=== PATIENT | male | born 1965 | race Caucasian/White ===

== ENCOUNTER 2016-05-14 14:06 | Inpatient (IN) | payer OTHER ==
[2016-05-14] VITALS (10 sets, daily range): BP systolic 63–122; BP diastolic 41–85; PULSE 67–79; RESP 16–24; TEMP 92.9–97.8; O2SAT 95–100
[2016-05-14] MEDS ORDERED: SODIUM CHLOR 0.9% 1000 ML INJ 1,000 ML IV ONE ×3 (14:24→15:45)
[2016-05-14] MEDS ORDERED: SODIUM CHLORIDE 0.9% FLUSH 5 ML FLUSH IVF PRN (14:30)
[2016-05-14] MEDS ORDERED: POTASSIUM CHLOR 20 MEQ PREMIX 100 ML IV PRN ×10 (14:30→18:45)
[2016-05-14] MEDS ORDERED: INSULIN REGULAR (IV INFUSION) 100 UNITS in SODIUM CHLORIDE 0.9% INJ 99 ML IV SCH ×2 (14:30→18:45)
[2016-05-14 14:43] LABS: AUTOMATED NEUTROPHIL # 2.7 TH/MM3 (1.8-7.7); BASOPHIL % 0.7 % (0.0-2.0); EOSINOPHIL % 0.1 % (0.0-4.0); HEMATOCRIT 41.3 % (39.0-51.0); LYMPH % 22.5 % (9.0-44.0); LYMPHOCYTE # 0.9 TH/MM3 (1.0-4.8); MEAN CELL VOLUME 98.7 FL (80.0-100.0); MEAN CORPUSCULAR HEMOGLOBIN 30.7 PG (27.0-34.0); MONO % 4.2 % (0.0-8.0); NEUT % 72.5 % (16.0-70.0); PLATELET COUNT 200 TH/MM3 (150-450); RED BLOOD COUNT 4.18 MIL/MM3 (4.50-5.90); RED CELL DISTRIBUTION WIDTH 12.7 % (11.6-17.2); WHITE BLOOD COUNT 3.8 TH/MM3 (4.0-11.0)
[2016-05-14 14:48] LABS: HEMO FLAGS AUTO DIFF
--- NOTE | 2016-05-14 14:50 | PD ---
HPI . Unresponsive Chief Complaint: Altered Mental Status Time Seen by Provider: 14:13 Travel History International Travel<30 days: No Contact w/Intl Traveler<30days: No Traveled to known affect area: No History of Present Illness HPI Patient is brought in via [facility] because he is unresponsive. History is obtained from his . She states that he's been ill for about 4 or 5 days. He was seen in a clinic and diagnosed with an upper respiratory infection 2 days ago. He was placed on antibiotics, steroids and cough syrup. He has been getting worse rather than better since that treatment was started. He has started vomiting. The reports to numerous to count episodes of emesis. Mother and no diarrhea. She states that they have been trying to force fluids and then he vomits the fluid shortly after he drinks them. She states that he's been so weak that he has fallen. He refused to come to the hospital until today. He has no known history of diabetes. EMS found his sugar to be too high to read. He was hypotensive with a systolic pressure of 70 initially. He was treated en route with IV fluids. Blood pressure on arrival was about 110 systolic. [facility] Past Medical History High Cholesterol: Yes Diminished Hearing: No Hypertension: Yes Social History Alcohol Use: No Tobacco Use: No Substance Use: No Allergies-Medications (Allergen,Severity, Reaction): Coded Allergies: No Known Allergies (Unverified , 05/14/16) Reported Meds & Prescriptions Reported Meds & Active Scripts Active Reported Prednisone 20 Mg Tab 20 Mg PO BID Amoxicillin 875 Mg Tab 875 Mg PO BID Lisinopril 40 Mg Tab 40 Mg PO DAILY Amlodipine (Amlodipine Besylate) 5 Mg Tab 5 Mg PO DAILY Review of Systems General / Constitutional: Positive: Weight Loss, Other ( reports that he's been cool to the touch.) Cardiovascular: No: Chest Pain or Discomfort Respiratory: Positive: Cough Gastrointestinal: Positive: Nausea, Vomiting, No: Diarrhea Neurologic: Positive: Weakness, Dizziness, Syncope, Change in Mentation Physical Exam Narrative GENERAL: Patient is obviously very ill. He appears to pass out. His H&P. SKIN: Pale and dry and cool to the touch HEAD: Atraumatic. Normocephalic. EYES: Pupils equal and round. ENT: No nasal bleeding or discharge. Mucous membranes dry. Strong smell of ketones. NECK: Trachea midline. CARDIOVASCULAR: Regular rate and rhythm. RESPIRATORY: No accessory muscle use. GASTROINTESTINAL: Abdomen soft, non-tender, nondistended. MUSCULOSKELETAL: No obvious deformities. No edema. NEUROLOGICAL: Patient responds to verbal stimuli. I did not hear him speak. PSYCHIATRIC: Unable to assess. Data Data Last Documented VS Vital Signs Date Time Temp Pulse Resp B/P Pulse Ox O2 Delivery O2 Flow Rate FiO2 05/14/16 17:47 75 16 96/57 98 Room Air 05/14/16 17:05 94.2 Orders Electrocardiogram (05/14/16 14:24) Complete Blood Count With Diff (05/14/16 14:24) Comprehensive Metabolic Panel (05/14/16 14:24) Magnesium (Mg) (05/14/16 14:24) Phosphorus (Po4) (05/14/16 14:24) Beta Hydroxybutyrate (Acetone) (05/14/16 14:24) Lactic Acid (05/14/16 14:24) Urinalysis - C+S If Indicated (05/14/16 14:24) Chest, Single Ap (05/14/16 14:24) Blood Glucose (05/14/16 14:24) Blood Glucose (05/14/16 14:54) Ecg Monitoring (05/14/16 14:24) Iv Access Insert/Monitor (05/14/16 14:24) Oximetry (05/14/16 14:24) NPO (05/14/16 14:24) Sodium Chlor 0.9% 1000 Ml Inj (Ns 1000 M (05/14/16 14:24) Sodium Chlor 0.9% 1000 Ml Inj (Ns 1000 M (05/14/16 14:54) Sodium Chloride 0.9% Flush (Ns Flush) (05/14/16 14:30) Troponin I (05/14/16 14:24) Lipase (05/14/16 14:24) Insulin Regular (Iv Infusion) (Novolin R (05/14/16 14:30) Potassium Chlor 20 Meq Premix (Kcl 20 Me (05/14/16 14:30) Potassium Chlor 20 Meq Premix (Kcl 20 Me (05/14/16 14:30) Potassium Chlor 20 Meq Premix (Kcl 20 Me (05/14/16 14:30) Potassium Chlor 20 Meq Premix (Kcl 20 Me (05/14/16 14:30) Sodium Chlor 0.9% 1000 Ml Inj (Ns 1000 M (05/14/16 15:45) Ct Abd/Pel W/O Iv Contrast (05/14/16 16:55) Labs Laboratory Tests Test 05/14/16 05/14/16 05/14/16 14:30 15:15 15:40 White Blood Count 3.8 TH/MM3 Red Blood Count 4.18 MIL/MM3 Hemoglobin 12.8 GM/DL Hematocrit 41.3 % Mean Corpuscular Volume 98.7 FL Mean Corpuscular Hemoglobin 30.7 PG Mean Corpuscular Hemoglobin 31.0 % Concent Red Cell Distribution Width 12.7 % Platelet Count 200 TH/MM3 Mean Platelet Volume 9.5 FL Neutrophils (%) (Auto) 72.5 % Lymphocytes (%) (Auto) 22.5 % Monocytes (%) (Auto) 4.2 % Eosinophils (%) (Auto) 0.1 % Basophils (%) (Auto) 0.7 % Neutrophils # (Auto) 2.7 TH/MM3 Lymphocytes # (Auto) 0.9 TH/MM3 Monocytes # (Auto) 0.2 TH/MM3 Eosinophils # (Auto) 0.0 TH/MM3 Basophils # (Auto) 0.0 TH/MM3 CBC Comment AUTO DIFF Differential Total Cells 100 Counted Neutrophils % (Manual) 61 % Band Neutrophils % 27 % Lymphocytes % 7 % Monocytes % 3 % Neutrophils # (Manual) 3.4 TH/MM3 Metamyelocytes 2 % Differential Comment FINAL DIFF MANUAL Platelet Estimate NORMAL Platelet Morphology Comment NORMAL Red Cell Morphology Comment NORMAL Lactic Acid Level 0.4 mmol/L Urine Color LIGHT-YELLOW Urine Turbidity CLEAR Urine pH 5.0 Urine Specific [place] 1.018 Urine Protein 30 mg/dL Urine Glucose (UA) 1000 mg/dL Urine Ketones 40 mg/dL Urine Occult Blood LARGE Urine Nitrite NEG Urine Bilirubin NEG Urine Urobilinogen LESS THAN 2.0 MG/DL Urine Leukocyte Esterase NEG Urine RBC 1 /hpf Urine WBC 5 /hpf Urine Squamous Epithelial <1 /hpf Cells Urine Bacteria RARE /hpf Urine Mucus FEW /lpf Microscopic Urinalysis Comment CULT NOT INDICATED Sodium Level 112 MEQ/L Potassium Level 6.0 MEQ/L Chloride Level 74 MEQ/L Carbon Dioxide Level 5.5 MEQ/L Anion Gap 33 MEQ/L Blood Urea Nitrogen 85 MG/DL Creatinine 3.44 MG/DL Estimat Glomerular Filtration 19 ML/MIN Rate Random Glucose 1208 MG/DL Calcium Level 7.7 MG/DL Phosphorus Level 7.8 MG/DL Magnesium Level 2.6 MG/DL Total Bilirubin 0.5 MG/DL Aspartate Amino Transf 189 U/L (AST/SGOT) Alanine Aminotransferase 63 U/L (ALT/SGPT) Alkaline Phosphatase 86 U/L Troponin I 0.11 NG/ML Total Protein 5.4 GM/DL Albumin 2.8 GM/DL Lipase GREATER THAN 12024 U/L B-Hydroxybutyrate 12.23 MMOL/L MDM Medical Decision Making Medical Screen Exam Complete: Yes Emergency Medical Condition: Yes Interpretation(s) EKG shows a sinus rhythm. Poor R-wave progression. No old EKGs for comparison. Differential Diagnosis Differential diagnosis of hyperglycemia includes but is not limited to dietary indiscretion, medication noncompliance, infection, IL, DKA. Narrative Course Patient is brought in by [facility] with hyperglycemia and hypotension. We will continue fluid resuscitation. We will start an insulin drip. 3:30 PM Chest x-ray is negative for acute finding. Chest x-ray was independently viewed by me. CBC has an H&H of 12.8 and 41.3. White count is 3.8. All of his chemistries are pending. 5 PM This patient's care has been delayed because we have not yet received lab reports from his chemistries. We have been told verbally that his glucoses about 1200 and his lipase is 30,000. Potassium is 6. Therefore, we can go ahead and start an insulin drip. I have ordered a CT of his abdomen for further evaluation of the elevated lipase. 5:09 PM Sodium is 112, potassium is 6.0, chloride 74, bicarbonate 5.5, BUN 85, creatinine 3.44, glucose 1200. Lipase is greater than 30,000. 6:[address] Koroma will admit the patient to the ICU. Critical Care Narrative Aggregate critical care time was 60 minutes. Time to perform other separately billable procedures was not included in the critical care time. My time did not include minutes spent treating any other patients simultaneously or on activities that did not directly contribute to the patient's treatment. The services I provided to this patient were to treat and/or prevent clinically significant deterioration that could result in: or permanent disability I provided critical care services requiring my management, as noted below: Chart data review, documentation time, medication orders and management, vital sign assessments/reviewing monitor data, ordering and reviewing lab tests, ordering and interpreting/reviewing x-rays and diagnostic studies, care of the patient and discussion of the patient with the admitting physicians. Physician Communication Physician Communication Sole Molder paged at 1800. Dr. Koroma will admit the patient. Diagnosis Primary Impression: DKA (diabetic ketoacidoses) Qualified Code: E13.11 - Diabetic ketoacidosis with coma associated with other specified diabetes mellitus Additional Impressions: Pancreatitis Qualified Code: K85.90 - Acute pancreatitis, unspecified complication status, unspecified pancreatitis type ARF (acute renal failure) Qualified Code: N17.9 - Acute renal failure, unspecified acute renal failure type Admitting Information Admitting Physician Requests: Admit Condition: Serious Aliyah Jacobs MD May 14, 2016 14:50
--- NOTE | 2016-05-14 15:06 | RADRPT ---
EXAM DATE/TIME: 05/14/2016 14:33 [facility] COMPARISON: No previous studies available for comparison. INDICATIONS : Shortness of breath MEDICAL HISTORY : None. SURGICAL HISTORY : None. ENCOUNTER: Initial ACUITY: 1 day PAIN SCORE: Non-responsive. LOCATION: Bilateral chest FINDINGS: A single view of the chest demonstrates the lungs to be symmetrically aerated without evidence of mas s, infiltrate or effusion. The cardiomediastinal contours are unremarkable. Osseous structures are intact. CONCLUSION: No evidence of acute cardiopulmonary disease. Maxwell Patiño MD on May 14, 2016 at 15:04 Board Certified Radiologist. This report was verified electronically.
[2016-05-14 16:12] LABS: BANDS 27 % (0-6); METAMYELOCYTES 2 % (0-1); NEUTROPHIL # MANUAL DIFF 3.4 TH/MM3 (1.8-7.7); PLATELET ESTIMATE SMEAR NORMAL (NORMAL); PLATELET MORPHOLOGY NORMAL (NORMAL); POLYS (SEG NEUTROPHILS) 61 % (16-70); SCAN/DIFF FINAL DIFF MANUAL; WBC DIFF SAMPLE 100
[2016-05-14 16:13] LABS: BACTERIA, URINE RARE /hpf; BLOOD, URINE LARGE (NEG); COMMENT (UR) CULT NOT INDICATED; CULTURE IF INDICATED CULT NOT INDICATED; GLUCOSE,URINE 1000 mg/dL (NEG); KETONE, URINE 40 mg/dL (NEG); MUCUS URINE FEW /lpf (OCC); NITRITE,URINE NEG (NEG); SQUAMOUS EPITHELIAL CELL URINE <1 /hpf (0-5); URINE COLOR LIGHT-YELLOW (YELLW/STRAW)
[2016-05-14] MEDS ORDERED: LISI40TA PO (16:41)
[2016-05-14] MEDS ORDERED: AMOX875T PO (16:41)
[2016-05-14] MEDS ORDERED: PRED20 PO (16:41)
[2016-05-14] MEDS ORDERED: AMLO5TAB2 PO (16:41)
[2016-05-14 16:59] LABS: ALT (GPT) 63 U/L (12-78); ANION GAP 33 MEQ/L (5-15); AST (GOT) 189 U/L (15-37); BICARBONATE 5.5 MEQ/L (21.0-32.0); BLOOD UREA NITROGEN 85 MG/DL (7-18); CHLORIDE 74 MEQ/L (98-107); GLOMERULAR FILTRATION RATE 19 ML/MIN (>89); MAGNESIUM 2.6 MG/DL (1.5-2.5); TOTAL BILIRUBIN ADULT 0.5 MG/DL (0.2-1.0)
[2016-05-14 17:01] LABS: SODIUM (NA) 112 MEQ/L (136-145)
[2016-05-14 17:04] LABS: ALKALINE PHOSPHATASE 86 U/L (45-117); BETA-HYDROXYBUTYRATE 12.23 MMOL/L (0.00-0.39)
--- NOTE | 2016-05-14 17:50 | RADRPT ---
EXAM DATE/TIME: 05/14/2016 17:31 [facility] COMPARISON: No previous studies available for comparison. INDICATIONS : Abdomen pain; vomiting for three days. ORAL CONTRAST: No oral contrast ingested. RADIATION DOSE: 5.88 CTDIvol (mGy) MEDICAL HISTORY : Hypertension. SURGICAL HISTORY : None. ENCOUNTER: Initial ACUITY: 1 day PAIN SCALE: 5/10 LOCATION: Bilateral abdomen. TECHNIQUE: Volumetric scanning of the abdomen and pelvis was performed. Using automated exposure control and ad justment of the mA and/or kV according to patient size, radiation dose was kept as low as reasonably achievable to obtain optimal diagnostic quality images. FINDINGS: LOWER LUNGS: Linear bibasilar atelectasis is mild. LIVER: Homogeneous density without lesion. There is no dilation of the biliary tree. No calcified gallston es. SPLEEN: Normal size without lesion. PANCREAS: The pancreas is edematous and there is stranding of the adjacent fat. No pseudocyst or hemorrhage obs erved. No pancreatic ductal dilatation. KIDNEYS: Normal in size and shape. There is no mass, stone, or hydronephrosis. ADRENAL GLANDS: Within normal limits. VASCULAR: There is no aortic aneurysm. BOWEL/MESENTERY: Circumferential wall thickening involving the duodenum without obstruction or free air. The stomach a nd colon demonstrate no acute abnormality. There is no free intraperitoneal air. Small volume of asc itic fluid mostly within the pelvis. ABDOMINAL WALL: Within normal limits. RETROPERITONEUM: There is no lymphadenopathy. BLADDER: No wall thickening or mass. REPRODUCTIVE: Within normal limits. INGUINAL: There is no lymphadenopathy or hernia. MUSCULOSKELETAL: Within normal limits for patient age. CONCLUSION: 1. Acute pancreatitis without hemorrhage or pseudocyst formation. No calcified stone or ductal dilata tion observed. 2. Small volume ascites. 3. Mild wall thickening involving the duodenum secondary to the adjacent pancreatitis. Aniceto Coulter Jr., MD on May 14, 2016 at 17:41 Board Certified Radiologist. This report was verified electronically.
[2016-05-14] MEDS ORDERED: CHLORHEXIDINE GLUCONATE 2 % 1 PACK (2 CLOTHS) TOP PRN (18:30)
[2016-05-14] MEDS ORDERED: PANTOPRAZOLE SODIUM 40 MG VIAL IV SCH (18:30)
[2016-05-14] MEDS ORDERED: RESP: ALBUTEROL 2.5 MG/3 ML NEB (PRN) INH (18:30)
[2016-05-14] MEDS ORDERED: ONDANSETRON HCL 4 MG/2 ML VIAL IV PRN (18:30)
[2016-05-14] MEDS ORDERED: MISCELLANEOUS NURSING INFORMATION XX SCH (18:30)
[2016-05-14] MEDS ORDERED: ACETAMINOPHEN 325 MG TAB PO PRN (18:30)
[2016-05-14] MEDS ORDERED: DEXT 5%-NACL 0.9% 1000 ML INJ 1,000 ML IV SCH (18:44)
[2016-05-14] MEDS ORDERED: SODIUM BICARBONATE 8.4% SOLN 50 MEQ/50 ML VIAL IV PRN ×2 (18:45)
[2016-05-14] MEDS ORDERED: POTASSIUM CHLOR 40 MEQ PREMIX 100 ML IV PRN ×2 (18:45)
[2016-05-14] MEDS ORDERED: SODIUM PHOSPHATE INJ 15 MMOL in SODIUM CHLORIDE 0.9% INJ 100 ML IV PRN (18:45)
[2016-05-14] MEDS: SODIUM CHLOR 0.9% 1000 ML INJ 1,000 ML IV SCH ×2 (19:32→23:35)
[2016-05-14 19:44] LABS: APTT (PATIENT) 32.1 SEC (24.3-30.1); PROTHROMBIN TIME - PATIENT 11.4 SEC (9.8-11.6)
--- NOTE | 2016-05-14 19:48 | HHI.HP ---
HPI Service Critical Care Medicine Primary Care Physician No Primary Care Physician Admission Diagnosis DKA, pancreatitis Diagnosis: Travel History International Travel<30 Days: No Contact w/Intl Traveler <30 Da: No Traveled to Known Affected Are: No History of Present Illness History was obtained primarily from patient's as he is not able to provide significant past medical history. 51-year-old male with past mental history of hypertension, EtOH abuse presents to [facility] emergency department after he has been ill for 3 days. His states that he came home from work on 05/12/16 and was short of breath. He went to an outpatient clinic where he was diagnosed with an upper respiratory infection and prescribed steroids, amoxicillin, Cheratussin. He then developed vomiting with too many episodes of emesis to count. She states that she was told by the physician to hold steroids and cough medicine and just administer amoxicillin however he was unable to keep it down. She denies any hematemesis. He had previously denied abdominal pain but did report some abdominal discomfort during palpation in the ED. He had denied headache or neck pain to his . His last bowel movement was here in the ED. There is no melena. His states that she noticed he was breathing abnormally and had was becoming progressively more disoriented since yesterday evening. ED workup demonstrates that he is in DKA, acute kidney injury, and pancreatitis with lipase greater than 30,000. He has received 3 L normal saline bolus and has been started on an insulin drip. His presenting systolic blood pressure was in the 70s. Now his blood pressure is 96 /57 with map of 70. He has no prior history of pancreatitis Review of Systems ROS Limitations: Clinical Condition, Altered Mental Status Past Family Social History Allergies: Coded Allergies: No Known Allergies (Unverified , 05/14/16) Past Medical History Hypertension Past Surgical History None Reported Medications Lisinopril 40 mg by mouth daily Norvasc 5 g by mouth daily Prednisone 20 by mouth twice a day Amoxicillin 875 mill grams by mouth twice a day Cheratussin Family History is unaware of any significant family medical history. Social History He works as a respiratory therapist He smokes for a few years but quit about 2 years ago He is an alcoholic but his says that he is in recovery. She says he did do some drinking over the . She finds it difficult to quantify his alcohol intake because she states that he would hide it. He states he states he used to drink large quantities of vodka and also was mostly a binge drinker rather than a daily drinker He is Physical Exam Vital Signs Vital Signs Date Time Temp Pulse Resp B/P Pulse Ox O2 Delivery O2 Flow Rate FiO2 05/14/16 17:47 75 16 96/57 98 Room Air 05/14/16 17:05 94.2 05/14/16 16:00 76 16 100/59 100 Room Air 05/14/16 15:00 79 16 115/61 100 Room Air 05/14/16 14:15 Room Air 05/14/16 14:09 92.9 67 24 108/56 Physical Exam Temp 94.2 rectal pulse in the 80s blood pressure 96/57 sats 100% on room air GENERAL: Well-nourished, well-developed patient was laying in ED gurney. SKIN: Warm and dry, has been under a warming blanket. No petechiae. No rash. HEAD: Atraumatic. Normocephalic. EYES: Pupils equal and round, for meters reactive to 2 mm bilaterally.. No scleral icterus. No injection or drainage. ENT: No nasal bleeding or discharge. Mucous membranes pink and dry NECK: Trachea midline. No JVD. No meningismus. CARDIOVASCULAR: Regular rate and rhythm, sinus rhythm on the monitor. No murmurs rubs or gallops. RESPIRATORY: 2 small breathing with no accessory muscle use. Clear to auscultation. On room air. GASTROINTESTINAL: Abdomen soft, mildly tender in epigastrium without rebound or guarding., nondistended. Bowel sounds present. MUSCULOSKELETAL: Extremities without clubbing, cyanosis, or edema. No obvious deformities. NEUROLOGICAL: Awake, says "I feel fine", oriented to self, hospital, thinks the year is 2012. Moves all extremities without apparent focal deficit. No obvious cranial nerve abnormalities. normal ocular movements. Laboratory Laboratory Tests Test 05/14/16 05/14/16 05/14/16 14:30 15:15 15:40 White Blood Count 3.8 Red Blood Count 4.18 Hemoglobin 12.8 Hematocrit 41.3 Mean Corpuscular Volume 98.7 Mean Corpuscular Hemoglobin 30.7 Mean Corpuscular Hemoglobin 31.0 Concent Red Cell Distribution Width 12.7 Platelet Count 200 Mean Platelet Volume 9.5 Neutrophils (%) (Auto) 72.5 Lymphocytes (%) (Auto) 22.5 Monocytes (%) (Auto) 4.2 Eosinophils (%) (Auto) 0.1 Basophils (%) (Auto) 0.7 Neutrophils # (Auto) 2.7 Lymphocytes # (Auto) 0.9 Monocytes # (Auto) 0.2 Eosinophils # (Auto) 0.0 Basophils # (Auto) 0.0 CBC Comment AUTO DIFF Differential Total Cells 100 Counted Neutrophils % (Manual) 61 Band Neutrophils % 27 Lymphocytes % 7 Monocytes % 3 Neutrophils # (Manual) 3.4 Metamyelocytes 2 Differential Comment FINAL DIFF MANUAL Platelet Estimate NORMAL Platelet Morphology Comment NORMAL Red Cell Morphology Comment NORMAL Lactic Acid Level 0.4 Urine Color LIGHT-YELLOW Urine Turbidity CLEAR Urine pH 5.0 Urine Specific [place] 1.018 Urine Protein 30 Urine Glucose (UA) 1000 Urine Ketones 40 Urine Occult Blood LARGE Urine Nitrite NEG Urine Bilirubin NEG Urine Urobilinogen LESS THAN 2.0 Urine Leukocyte Esterase NEG Urine RBC 1 Urine WBC 5 Urine Squamous Epithelial <1 Cells Urine Bacteria RARE Urine Mucus FEW Microscopic Urinalysis Comment CULT NOT INDICATED Sodium Level 112 Potassium Level 6.0 Chloride Level 74 Carbon Dioxide Level 5.5 Anion Gap 33 Blood Urea Nitrogen 85 Creatinine 3.44 Estimat Glomerular Filtration 19 Rate Random Glucose 1208 Calcium Level 7.7 Phosphorus Level 7.8 Magnesium Level 2.6 Total Bilirubin 0.5 Aspartate Amino Transf 189 (AST/SGOT) Alanine Aminotransferase 63 (ALT/SGPT) Alkaline Phosphatase 86 Troponin I 0.11 Total Protein 5.4 Albumin 2.8 Lipase GREATER THAN 94806 B-Hydroxybutyrate 12.23 Result Diagram: 05/14/16 1430 05/14/16 1540 Septic Shock Reassessment Heart: Regular rate and rhythm Lungs: Clear Skin: Warm Peripheral Pulses: Weak Right Radial Weak Left Radial Weak Right Popliteal Weak Left Popliteal Weak Right Dorsalis Pedis Weak Left Dorsalis Pedis Weak Right Posterior Tibial Weak Left Posterior Tibial Capillary Refill: >2 seconds Assessment and Plan Assessment and Plan NEURO: Acute toxic metabolic encephalopathy Alcohol abuse Obtain CT brain. Continue to monitor mental status as metabolic abnormalities are corrected. Thiamine 100 mg's IV daily Monitor for evidence of alcohol withdrawal RESP: Kussmaul respirations Nasal cannula if needed to maintain sats greater than 92%. CV: Hypotension secondary to hypovolemia and distributive shock/sepsis secondary to acute severe pancreatitis. History of hypertension Monitor hemodynamics. Lactic acid is normal. Has received 3 L normal saline bolus in the emergency department. Continue normal saline 250 L per hour Hold home medications including Norvasc (due to hypotension) and lisinopril ( due to hypotension and JASMIN). Follow-up serial troponins. Obtain an EKG. GI: Acute severe pancreatitis Nothing by mouth for now until DKA corrected then transition to early enteral feeds when appropriate. CT abdomen and pelvispancreatitis. No pseudocyst FEN/RENAL/Endo: Pseudohyponatremia Hyperphosphatemia Acute anion gap metabolic acidosis secondary to DKA Acute kidney injury Acute rhabdomyolysis Received 2 L normal saline in the emergency department. Normal saline 250 L per hour. Insulin drip per DKA protocol. BMP/Mag/Phos every 6 hours. Obtain ABG ID: Septic shock secondary to severe pancreatitis Urinalysis is unremarkable for evidence infection. Chest x-ray is negative. Will check influenza screen. Send blood cultures 2 sets. Zosyn 2.25 g IV every 8 hours HEME: Anemia Leukopenia Monitor CBC PROPH: Hold on subcutaneous heparin for DVT prophylaxis due to GI bleeding. Protonix 40 mg IV daily for stress ulcer prophylaxis. ACCESS: Left IJ central venous line placed 05/14/16, right femoral art line placed 05/15/16 Full code was updated at bedside on 3 separate occasions. Patient had progressive decline over the evening with refractory shock, severe metabolic acidemia, multiorgan dysfunction. Was intubated and art line was placed. On multiple pressors, bicarb drip. stress dose steroids, empiric abx, protonix drip.Transfused Hgb/plts/2 units FFP due to blood loss and consumption from large volume coffee ground output from OGT in setting of shock. Prognosis is guarded. Critical care 90 minutes exclusive of separately billable procedures Angelita Koroma MD May 14, 2016 19:48
[2016-05-14] MEDS: DOCUSATE SODIUM 100 MG CAP PO SCH (21:00)
--- NOTE | 2016-05-14 21:04 | RADRPT ---
EXAM DATE/TIME: 05/14/2016 20:26 [facility] COMPARISON: No previous studies available for comparison. INDICATIONS : Altered mental status. RADIATION DOSE: 38.98 CTDIvol (mGy) MEDICAL HISTORY : Hypertension. SURGICAL HISTORY : None. ENCOUNTER: Initial ACUITY: 1 day PAIN SCALE: 0/10 LOCATION: cranial TECHNIQUE: Multiple contiguous axial images were obtained of the head. Using automated exposure control and adj ustment of the mA and/or kV according to patient size, radiation dose was kept as low as reasonably a chievable to obtain optimal diagnostic quality images. FINDINGS: Study is motion degraded. CEREBRUM: The ventricles are normal for age. No evidence of midline shift, mass lesion, hemorrhage or acute in farction. No extra-axial fluid collections are seen. POSTERIOR FOSSA: The cerebellum and brainstem are intact. The 4th ventricle is midline. The cerebellopontine angle i s unremarkable. EXTRACRANIAL: The visualized portion of the orbits is intact. SKULL: The calvaria is intact. No evidence of skull fracture. CONCLUSION: Motion degraded. No acute abnormality demonstrated. Maxwell Patiño MD on May 14, 2016 at 21:00 Board Certified Radiologist. This report was verified electronically.
[2016-05-14] MEDS ORDERED: ALBUMIN HUMAN 25% 25 GM/100 ML BAGP IV ONE (21:30)
[2016-05-14] MEDS: SODIUM CHLORIDE 0.9% FLUSH 5 ML FLUSH IV FLUSH SCH (21:41)
[2016-05-14] MEDS ORDERED: TERBUTALINE INJ 1 MG/ML AMP SQ PRN (21:45)
[2016-05-14] MEDS ORDERED: DOPamine INJ PREMIX 500 ML IV SCH (21:45)
[2016-05-14] MEDS: PIPERACIL-TAZO 2.25 GM PREMIX 50 ML IV SCH (21:47)
[2016-05-14] MEDS: THIAMINE INJ 100 MG in SODIUM CHLORIDE 0.9% INJ 100 ML IV SCH (22:50)
[2016-05-14 23:22] LABS: BICARBONATE 10.2 MEQ/L (21.0-32.0); MAGNESIUM 2.7 MG/DL (1.5-2.5); POTASSIUM 4.7 MEQ/L (3.5-5.1)
[2016-05-15] VITALS (24 sets, daily range): BP systolic 80–115; BP diastolic 44–60; PULSE 96–143; RESP 22–34; TEMP 96.6–98.3; O2SAT 52–100
[2016-05-15 00:14] LABS: CKMB 135.8 NG/ML (0.5-3.6)
[2016-05-15] MEDS ORDERED: SODIUM CHLOR 0.9% 1000 ML INJ 1,000 ML IV ONE (00:15)
[2016-05-15] MEDS ORDERED: TERBUTALINE INJ 1 MG/ML AMP SQ PRN ×2 (00:15→04:45)
[2016-05-15] MEDS ORDERED: NOREPINEPHRINE-DEXTROSE DRIP 250 ML IV SCH (00:15)
--- NOTE | 2016-05-15 00:17 | PD.PROCEDR ---
Procedure Note Procedure DATE: 05/14/60 CENTRAL LINE PLACEMENT: Left internal jugular vein. Ultrasound-guided INDICATION: Central venous access CONSENT Informed consent for procedure was obtained from patient's . Signed consent is on the chart. DESCRIPTION OF THE PROCEDURE The patient was placed in supine position, Trendelenburg. The skin was cleansed with Chloraprep x3. Additional barrier precautions included large sterile drape, sterile gloves, sterile gown, face mask, and hat. 1 % lidocaine was used for local anesthesia. Under direct ultrasound guidance and on single attempt, the vein was accessed with an introducer needle. The guide wire was advanced and the tract was dilated. Using Seldinger technique a 7 [place] 20 cm antimicrobial coated triple-lumen catheter was advanced to a depth of 18 centimeters. The guide wire was removed. All ports had good return of dark venous blood and flushed easily with saline. The central line was secured with 2.0 silk. A sterile dressing with antibiotic disc was applied. ESTIMATED BLOOD LOSS: Minimal COMPLICATIONS: No apparent complications. STAT chest x-ray is pending Angelita Koroma MD May 15, 2016 00:17
--- NOTE | 2016-05-15 00:46 | RADRPT ---
EXAM DATE/TIME: 05/15/2016 00:24 [facility] COMPARISON: CHEST SINGLE AP, May 14, 2016, 14:33. INDICATIONS : Evaluate Central line placement. MEDICAL HISTORY : None. SURGICAL HISTORY : None. ENCOUNTER: Initial ACUITY: 1 day PAIN SCORE: Non-responsive. LOCATION: Bilateral chest FINDINGS: A single view of the chest demonstrates the lungs to be symmetrically aerated without evidence of mas s, infiltrate or effusion. The cardiomediastinal contours are unremarkable. Osseous structures are intact. CONCLUSION: Normal examination. Left IJ central venous catheter has been placed with its tip overlying the SVC an d no evidence of pneumothorax Florentino Erickson MD on May 15, 2016 at 0:45 Board Certified Radiologist. This report was verified electronically.
[2016-05-15 01:08] LABS: BLOOD GAS VENOUS BASE EXCESS -20.2 mmol/L (-2-2); BLOOD GAS VENOUS HCO3 8 mmol/L (22-26); BLOOD GAS VENOUS O2 CONTENT 10.2 Vol % (9.0-17.0); BLOOD GAS VENOUS O2 HGB SAT 70 % (70-76); BLOOD GAS VENOUS PCO2 28 mmHg (44-48); BLOOD GAS VENOUS PO2 41 mmHg (35-40); BLOOD GAS VENOUS pH 7.08 (7.360-7.400); TEMP CORR TO 98.6
[2016-05-15 01:10] LABS: CRITICAL VALUE YES; DRAW SITE CENTRAL LINE; FIO2 21 %
[2016-05-15 01:11] LABS: STAT NO
[2016-05-15] MEDS: ALBUMIN HUMAN 25% 25 GM/100 ML BAGP IV SCH ×5 (01:26→20:11)
[2016-05-15] MEDS ORDERED: SODIUM BICARBONATE 8.4% INJ 50 MEQ/50 ML SYR IV PUSH ONE ×2 (02:00→05:45)
[2016-05-15] MEDS ORDERED: LACTATED RINGER'S 1000 ML INJ 1,000 ML IV ONE (02:00)
[2016-05-15] MEDS ORDERED: ETOMIDATE 20 MG/10 ML VIAL ONE (02:09)
[2016-05-15] MEDS ORDERED: ROCURONIUM INJ 50 MG/5 ML VIAL ONE (02:09)
[2016-05-15] MEDS ORDERED: ROCURONIUM INJ 50 MG/5 ML VIAL IV ONE ×2 (02:15→04:00)
[2016-05-15] MEDS ORDERED: MIDAZOLAM HCL 2 MG/2 ML VIAL IV PUSH PRN (02:15)
[2016-05-15] MEDS ORDERED: ETOMIDATE 20 MG/10 ML VIAL IV PUSH ONE (02:15)
[2016-05-15] MEDS ORDERED: fentaNYL DRIP 250 ML IV SCH (02:15)
[2016-05-15] MEDS ORDERED: VASOPRESSIN INJ 40 UNITS in DEXTROSE 5% IN WATER 100ML INJ 98 ML IV SCH ×4 (02:37→04:30)
--- NOTE | 2016-05-15 02:54 | PD.PROCEDR ---
Procedure Note Procedure PROCEDURE NOTE PROCEDURE: Endotracheal intubation INDICATION: Acute respiratory failure. Severe metabolic acidemia, now with inability to sustain respiratory compensation. DETAILS OF PROCEDURE: The patient was placed in optimal position and preoxygenated with 100% FiO2 via [id number]. Sats 95% W=was obtained prior to direct laryngoscopy. The patient was administered Etomidate 20 mg IV for sedation and Rocuronium 50 mg IV for paralysis. Direct laryngoscopy was performed with a 3 [place] laryngoscope blade. There was brown/coffee ground gastric contents in airway that was suctioned away. The airway was deep and anterior enough that was unable to lift epiglottis to obtain view with 3 Mac blade (grade IV). T Transitioned to 4 Glidescope a grade I Cormack-Lehane view was very easily obtained after suctioning of gastric contents. On single attempt a size 8.0 endotracheal tube was visualized passing through the cords. Correct placement was confirmed with colorimetric CO2 detector. Breath sounds were equal bilaterally. No sounds auscultated over the stomach. The endotracheal tube was secured with a commercial tube baron at a depth of 24 cm at the lips. The patient was connected to the ventilator. The patient tolerated the procedure well without any apparent complication. Oxygen saturations were maintained greater than 98% at all times. Stat chest x-ray was ordered and demonstrates satisfactory ETT position Angelita Koroma MD May 15, 2016 02:54
--- NOTE | 2016-05-15 03:02 | RADRPT ---
EXAM DATE/TIME: 05/15/2016 02:42 [facility] COMPARISON: CHEST SINGLE AP, May 15, 2016, 0:24. INDICATIONS : Respiratory failure. MEDICAL HISTORY : None. SURGICAL HISTORY : None. ENCOUNTER: Subsequent ACUITY: 1 day PAIN SCORE: Non-responsive. LOCATION: Bilateral chest FINDINGS: A single view of the chest demonstrates the interval placement of an endotracheal tube. The nasogastr ic tube and left IJ central line in good position . Mild atelectasis both lung bases . The cardiome diastinal contours are unremarkable. Osseous structures are intact. CONCLUSION: Endotracheal tube now in good position. Other tubes and catheter in good position. Mild bibasilar ate lectasis Florentino Erickson MD on May 15, 2016 at 2:59 Board Certified Radiologist. This report was verified electronically.
[2016-05-15] MEDS: PANTOPRAZOLE INJ 80 MG in SODIUM CHLORIDE 0.9% INJ 100 ML IV SCH ×3 (03:10→21:48)
[2016-05-15] MEDS ORDERED: PANTOPRAZOLE INJ 80 MG in SODIUM CHLORIDE 0.9% INJ 35 ML IV ONE (03:15)
[2016-05-15] MEDS ORDERED: CISATRACURIUM BESYLATE 20 MG/10 ML VIAL IVP ONE (04:00)
[2016-05-15] MEDS ORDERED: CHLORHEXIDINE GLUCONATE 2 % 1 PACK (2 CLOTHS) TOP SCH (04:00)
[2016-05-15] MEDS ORDERED: SODIUM CHLOR 0.9% 250 ML INJ 250 ML IV ONE ×4 (04:00→12:15)
[2016-05-15 04:15] LABS: AUTOMATED NEUTROPHIL # 1.8 TH/MM3 (1.8-7.7); BASOPHIL % 0.1 % (0.0-2.0); EOSINOPHIL % 0.2 % (0.0-4.0); HEMATOCRIT 24.3 % (39.0-51.0); LYMPH % 10.9 % (9.0-44.0); LYMPHOCYTE # 0.3 TH/MM3 (1.0-4.8); MEAN CELL VOLUME 89.1 FL (80.0-100.0); MEAN CORPUSCULAR HEMOGLOBIN 30.8 PG (27.0-34.0); MEAN CORPUSCULAR HGB CONC 34.6 % (32.0-36.0); MONO % 23.2 % (0.0-8.0); NEUT % 65.6 % (16.0-70.0); PLATELET COUNT 83 TH/MM3 (150-450); RED BLOOD COUNT 2.73 MIL/MM3 (4.50-5.90); RED CELL DISTRIBUTION WIDTH 12.1 % (11.6-17.2); WHITE BLOOD COUNT 2.8 TH/MM3 (4.0-11.0)
[2016-05-15 04:16] LABS: HEMO FLAGS AUTO DIFF
[2016-05-15 04:23] LABS: BICARBONATE 15.2 MEQ/L (21.0-32.0); MAGNESIUM 2.3 MG/DL (1.5-2.5); POTASSIUM 4.6 MEQ/L (3.5-5.1)
[2016-05-15] MEDS ORDERED: VASOPRESSIN IV SCH ×4 (04:30)
[2016-05-15] MEDS ORDERED: DEXTROSE 5% IV SCH ×4 (04:30)
[2016-05-15] MEDS ORDERED: WATER IV SCH ×4 (04:30)
[2016-05-15 04:40] LABS: BETA-HYDROXYBUTYRATE 2.62 MMOL/L (0.00-0.39)
--- NOTE | 2016-05-15 04:40 | PD.PROCEDR ---
Procedure Note Procedure DATE: 05/15/16 PROCEDURE: Femoral arterial catheter placement INDICATION: Profound shock, hypoxemia DETAILS OF PROCEDURE The patient was placed in supine position. The skin was cleansed with Chloraprep. Additional barrier precautions included large sterile drape, sterile gloves, sterile gown, face mask, and hat. 1% lidocaine was used for local anesthesia. Under direct ultrasound guidance and on the first attempt, the artery was accessed with an introducer needle. The guide wire was advanced. Using Seldinger technique 16 gauge 20cm arterial catheter was placed. The guide wire was removed. The catheter was connected to a transducer line and flushed with saline. The video monitor displayed normal arterial wave forms. The catheter was secured with 2-0 silk. A sterile dressing with antibiotic disc was applied. ESTIMATED BLOOD LOSS: minimal COMPLICATIONS: None Angelita Koroma MD May 15, 2016 04:40
--- NOTE | 2016-05-15 04:48 | PD.PROCEDR ---
Procedure Note Procedure Date: 05/15/16 Procedure: Cardiopulmonary resucitation Indication: PEA cardiac arrest Details of procedure: Pt was in profound shock and with severe hypoxemia with sats in 50s and subsequently developed PEA cardiac arrest. Per ACLS protocol pt received CPR, manual bag-valve ventilation via ETT, epinephrine x1, bicarb x 100 MEQ. ROSC was obtained within 1-2 minutes. Patient's was updated. Angelita Koroma MD May 15, 2016 04:48 Angelita Koroma MD May 15, 2016 04:48
[2016-05-15 04:50] LABS: BLOOD GAS BASE EXCESS -13.2 mmol/L (-2-2); BLOOD GAS HCO3 14 mmol/L (22-26); BLOOD GAS METHEMOGLOBIN 1.5 % (0-2); BLOOD GAS O2 HGB SATURATION 32 % (90-100); BLOOD GAS OXYGEN CONTENT 4.1 Vol % (12.0-20.0); BLOOD GAS PCO2 46 mmHg (38-42); BLOOD GAS PO2 21 mmHg (61-120); TEMP CORR TO 98.6
[2016-05-15 04:51] LABS: CRITICAL VALUE YES; OXYGEN DEVICE VENTILATOR
[2016-05-15 04:52] LABS: DRAW SITE RT FEMORAL; FIO2 100 %; NUMBER OF ARTERIAL PUNCTURES 1; STAT YES; VENT SETTINGS PC/AC
[2016-05-15] MEDS: NOREPINEPHRINE 16 MG/D5W 250 ML IV SCH ×12 (04:54→17:30)
[2016-05-15] MEDS: PHENYLEPHRINE INJ 160 MG in DEXTROSE 5% IN WATE 500 ML INJ 484 ML IV SCH ×4 (04:56→16:30)
[2016-05-15] MEDS: CISATRACURIUM INJ 100 MG in SODIUM CHLOR 0.9% 250 ML INJ 240 ML IV SCH ×2 (04:56→20:10)
[2016-05-15] MEDS ORDERED: SODIUM BICARBONATE 8.4% INJ 50 MEQ/50 ML SYR IV ONE (05:00)
[2016-05-15] MEDS ORDERED: ATROPINE SULFATE 1 MG/10 ML SYRINGE IV ONE (05:00)
[2016-05-15] MEDS ORDERED: EPINEPHrine HCL (1:10,000) 1 MG/10 ML SYRINGE IV ONE (05:00)
[2016-05-15 05:15] LABS: CALCIUM-PROTEIN CORRECTED 8.6 MG/DL (8.5-10.1)
[2016-05-15 05:16] LABS: BLOOD GAS BASE EXCESS -20.8 mmol/L (-2-2); BLOOD GAS HCO3 8 mmol/L (22-26); BLOOD GAS METHEMOGLOBIN 1.4 % (0-2); BLOOD GAS O2 HGB SATURATION 79 % (90-100); BLOOD GAS PCO2 37 mmHg (38-42); BLOOD GAS PO2 55 mmHg (61-120); BLOOD GAS TOTAL HGB 8.9 G/DL (12.0-16.0); TEMP CORR TO 98.6
[2016-05-15 05:16] LABS: CKMB 92.3 NG/ML (0.5-3.6)
[2016-05-15 05:17] LABS: CRITICAL VALUE YES; DRAW SITE ART LINE; FIO2 100 %; OXYGEN DEVICE VENTILATOR; STAT NO; VENT SETTINGS PC/AC
[2016-05-15 05:58] LABS: BANDS 9 % (0-6); METAMYELOCYTES 12 % (0-1); MYELOCYTES 1 % (0-0); NEUTROPHIL # MANUAL DIFF 2.4 TH/MM3 (1.8-7.7); PLATELET ESTIMATE SMEAR LOW (NORMAL); PLATELET MORPHOLOGY NORMAL (NORMAL); POLYS (SEG NEUTROPHILS) 62 % (16-70); SCAN/DIFF FINAL DIFF MANUAL; WBC DIFF SAMPLE 100
[2016-05-15] MEDS: LINEZOLID 600 MG PREMIX 300 ML IV SCH ×2 (06:00→17:22)
[2016-05-15] MEDS: PIPERACIL-TAZO 2.25 GM PREMIX 50 ML IV SCH ×3 (06:07→20:11)
[2016-05-15] MEDS: SODIUM BICARBONATE 8.4% INJ 150 MEQ in WATER STERILE FOR INJ 850 ML IV SCH ×4 (06:23→21:26)
[2016-05-15] MEDS ORDERED: MIDAZOLAM 100 MG/ML INJ 100 ML IV SCH (06:45)
[2016-05-15] MEDS: MICAFUNGIN INJ 100 MG in SODIUM CHLORIDE 0.9% INJ 100 ML IV SCH (07:00)
[2016-05-15] MEDS ORDERED: MISC INFORMATION XX ONE (07:00)
[2016-05-15] MEDS ORDERED: DEXTROSE 50% IN WATER 50 ML VIAL(D50) IV PUSH PRN (07:00)
[2016-05-15 07:10] LABS: BLOOD GAS BASE EXCESS -20.3 mmol/L (-2-2); BLOOD GAS CARBOXYHEMOGLOBIN 0.9 % (0-4); BLOOD GAS HCO3 9 mmol/L (22-26); BLOOD GAS METHEMOGLOBIN 1.4 % (0-2); BLOOD GAS O2 HGB SATURATION 81 % (90-100); BLOOD GAS OXYGEN CONTENT 12.2 Vol % (12.0-20.0); BLOOD GAS PCO2 39 mmHg (38-42); BLOOD GAS PO2 55 mmHg (61-120); BLOOD GAS TOTAL HGB 10.7 G/DL (12.0-16.0); TEMP CORR TO 98.6
[2016-05-15 07:11] LABS: CRITICAL VALUE YES; DRAW SITE ART LINE; OXYGEN DEVICE VENTILATOR; STAT NO
[2016-05-15 07:12] LABS: FIO2 100 %; VENT SETTINGS PC/AC
[2016-05-15 07:13] LABS: INDIRECT BILIRUBIN 0.2 MG/DL (0.0-0.8); TOTAL BILIRUBIN ADULT 0.3 MG/DL (0.2-1.0)
[2016-05-15 07:16] LABS: BLOOD GAS VENOUS BASE EXCESS -19.5 mmol/L (-2-2); BLOOD GAS VENOUS HCO3 10 mmol/L (22-26); BLOOD GAS VENOUS O2 CONTENT 9.9 Vol % (9.0-17.0); BLOOD GAS VENOUS O2 HGB SAT 64 % (70-76); BLOOD GAS VENOUS PCO2 47 mmHg (44-48); BLOOD GAS VENOUS PO2 40 mmHg (35-40); BLOOD GAS VENOUS pH 6.96 (7.360-7.400); CRITICAL VALUE YES; OXYGEN DEVICE VENTILATOR; TEMP CORR TO 98.6; VENT SETTINGS PC/AC
[2016-05-15 07:17] LABS: DRAW SITE CENTRAL LINE; FIO2 100 %; STAT NO
[2016-05-15] MEDS: DEXTROSE 10% INJ 1,000 ML IV SCH (07:30)
[2016-05-15] MEDS ORDERED: CALCIUM GLUCONATE 10% 1 GM/10 ML VIAL IV ONE (08:00)
[2016-05-15] MEDS: CHLORHEXIDINE 0.12% (ORAL KIT) 15 ML CUP MT SCH ×2 (08:00→20:00)
[2016-05-15] MEDS ORDERED: SODIUM BICARBONATE 8.4% SOLN 50 MEQ/50 ML VIAL IV ONE (08:00)
[2016-05-15] MEDS ORDERED: CALCIUM GLUCONATE INJ 2 GM in DEXTROSE 5% IN WATER 100ML INJ 100 ML IV ONE ×2 (08:15)
[2016-05-15] MEDS ORDERED: METHYLENE BLUE 100 MG/10 ML VIAL IV ONE (08:45)
[2016-05-15] MEDS: DOCUSATE SODIUM 100 MG CAP PO SCH ×2 (08:47→20:12)
[2016-05-15] MEDS ORDERED: METHYLENE BLUE IV ONE (09:00)
[2016-05-15] MEDS ORDERED: SODIUM CHLORIDE 0.9% IV ONE (09:00)
--- NOTE | 2016-05-15 09:00 | RADRPT ---
EXAM DATE/TIME: 05/15/2016 08:29 [facility] COMPARISON: CHEST SINGLE AP, May 15, 2016, 2:42. INDICATIONS : Hypoxia. MEDICAL HISTORY : Unobtainable. SURGICAL HISTORY : Unobtainable. ENCOUNTER: Initial ACUITY: 1 day PAIN SCORE: Non-responsive. LOCATION: Bilateral chest FINDINGS: Endotracheal tube tip at the level of the clavicles. Left jugular line tip overlies the SVC. NG tube tip terminates in the stomach. There is lower lobe consolidation bilaterally and probable right effus ion. This is not significantly changed. . CONCLUSION: No significant change has occurred. Brian Oneill MD on May 15, 2016 at 8:58 Board Certified Radiologist. This report was verified electronically.
[2016-05-15 09:11] LABS: BLOOD GAS BASE EXCESS -15.1 mmol/L (-2-2); BLOOD GAS CARBOXYHEMOGLOBIN 1.1 % (0-4); BLOOD GAS HCO3 13 mmol/L (22-26); BLOOD GAS METHEMOGLOBIN 1.3 % (0-2); BLOOD GAS O2 HGB SATURATION 88 % (90-100); BLOOD GAS OXYGEN CONTENT 11.8 Vol % (12.0-20.0); BLOOD GAS PCO2 43 mmHg (38-42); BLOOD GAS PO2 64 mmHg (61-120); BLOOD GAS TOTAL HGB 9.4 G/DL (12.0-16.0); CRITICAL VALUE YES; FIO2 100 %; OXYGEN DEVICE VENTILATOR; TEMP CORR TO 98.6
[2016-05-15 09:12] LABS: DRAW SITE ART LINE; NUMBER OF ARTERIAL PUNCTURES 0; STAT NO; ULNAR PULSE PRESENT
[2016-05-15] MEDS: EPINEPHrine 8 MG/D5W 250 ML IV SCH ×4 (09:38→17:30)
[2016-05-15 09:39] LABS: INTERNATIONAL NORMALIZED RATIO 1.6 RATIO; PROTHROMBIN TIME - PATIENT 18.5 SEC (9.8-11.6)
[2016-05-15] MEDS: SODIUM CHLORIDE 0.9% FLUSH 5 ML FLUSH IV FLUSH SCH ×2 (09:40→20:11)
[2016-05-15] MEDS: SODIUM CHLORIDE 0.9% FLUSH 5 ML FLUSH IV FLUSH PRN ×14 (09:40→18:42)
[2016-05-15 09:49] LABS: APTT (PATIENT) 82.8 SEC (24.3-30.1)
--- NOTE | 2016-05-15 09:50 | HHI.CCPN ---
Subjective Remarks/Hospital Course Hospital Course: History was obtained primarily from patient's as he is not able to provide significant past medical history. 51-year-old male with past mental history of hypertension, EtOH abuse presents to [facility] emergency department after he has been ill for 3 days. His states that he came home from work on 05/12/16 and was short of breath. He went to an outpatient clinic where he was diagnosed with an upper respiratory infection and prescribed steroids, amoxicillin, Cheratussin. He then developed vomiting with too many episodes of emesis to count. She states that she was told by the physician to hold steroids and cough medicine and just administer amoxicillin however he was unable to keep it down. She denies any hematemesis. He had previously denied abdominal pain but did report some abdominal discomfort during palpation in the ED. He had denied headache or neck pain to his . His last bowel movement was here in the ED. There is no melena. His states that she noticed he was breathing abnormally and had was becoming progressively more disoriented since yesterday evening. ED workup demonstrates that he is in DKA, acute kidney injury, and pancreatitis with lipase greater than 30,000. He has received 3 L normal saline bolus and has been started on an insulin drip. His presenting systolic blood pressure was in the 70s. Now his blood pressure is 96 /57 with map of 70. He has no prior history of pancreatitis Subjective: 05/15: patient remains in profound shock and multi-organ system failure. Though he was previously relatively healthy, he is now very critically ill. When I arrived at bedside, his pH was 6.9 despite ongoing active resuscitation with ivf , bicarb and maximal vasopressors. his last ABG was 6.9/38/55. For this, he received 2 gm CaCl, 4 amps bicarbonate, and a dose of methylene blue 2mg/kg. From a neurologic standpoint, he remains on the versed infusion and is paralyzed for elevated abdominal pressures. from a respiratory standpoint he is on PC/AC with PIP 31, MV 13 LPM, spo2 80s. CV, he is on 4 pressors and remains in profound vasoplegic distributive shock. His cardiac index is 3.5 and his scvo2 is 60 (sao2 80). He is still on mivf of 250cc/hr NS and bicarb 150cc/hr. profoundly acidotic and still in DKA. BG > 400 despite high dose insulin infusion. JASMIN is worsening and severely oliguric. His kidney are unable to regulate his acid load at this time. He is in DIC, clinically with oozing from iv sites, and with evidence of coagulopathy. he is thrombocytopenic, leukopenic , anemic. He also has coffee grounds emesis and likely has evidence of GI bleed , though this may be a combination of gastritis and DIC. His APACHEII score is 34. Objective Vital Signs Date Time Temp Pulse Resp B/P Pulse Ox O2 Delivery O2 Flow Rate FiO2 05/15/16 08:04 85 100 05/15/16 05:00 113 94/44 05/15/16 04:30 97.6 22 05/14/16 21:00 Room Air Intake and Output 05/14/16 05/14/16 05/15/16 08:00 16:00 00:00 Intake Total 2676 ml Output Total 120 ml Balance 2556 ml Result Diagram: 05/15/16 0338 05/15/16 0338 Other Results Microbiology Date/Time Procedure Status Source Growth 05/14/16 19:45 Influenza Types A,B Antigen (CYNDEE) - Final Complete Nasal Aspirate NEGATIVE FOR FLU A AND B ANTIGEN.... Laboratory Tests Test 05/15/16 05/15/16 05/15/16 05/15/16 00:55 03:30 05:05 06:52 Blood Gas Puncture Site CENTRAL LINE RT FEMORAL ART LINE ART LINE Blood Gas Patient Temperature 98.6 98.6 98.6 98.6 Venous Blood pH 7.08 (7.360-7.400) Venous Blood Partial Pressure 28 mmHg (44-48) CO2 Venous Blood Partial Pressure 41 mmHg (35-40) O2 Venous Blood HCO3 8 mmol/L (22-26) Venous Blood Oxygen Saturation 70 % (70-76) Venous Blood Oxygen Content 10.2 Vol % (9.0-17.0) Venous Blood Base Excess -20.2 mmol/L (-2-2) Blood Gas Inspired Oxygen 21 % 100 % 100 % 100 % Blood Gas HCO3 14 mmol/L 8 mmol/L 9 mmol/L (22-26) (22-26) (22-26) Blood Gas Base Excess -13.2 mmol/L -20.8 mmol/L -20.3 mmol/L (-2-2) (-2-2) (-2-2) Blood Gas Oxygen Saturation 32 % (90-100) 79 % (90-100) 81 % (90-100) Arterial Blood pH 7.12 6.98 6.99 (7.380-7.420) (7.380-7.420) (7.380-7.420) Arterial Blood Partial 46 mmHg (38-42) 37 mmHg (38-42) 39 mmHg (38-42) Pressure CO2 Arterial Blood Partial 21 mmHg 55 mmHg 55 mmHg Pressure O2 (61-120) (61-120) (61-120) Arterial Blood Oxygen Content 4.1 Vol % 10.0 Vol % 12.2 Vol % (12.0-20.0) (12.0-20.0) (12.0-20.0) Arterial Blood 1.0 % (0-4) 1.0 % (0-4) 0.9 % (0-4) Carboxyhemoglobin Arterial Blood Methemoglobin 1.5 % (0-2) 1.4 % (0-2) 1.4 % (0-2) Blood Gas Hemoglobin 9.0 G/DL 8.9 G/DL 10.7 G/DL (12.0-16.0) (12.0-16.0) (12.0-16.0) Oxygen Delivery Device VENTILATOR VENTILATOR VENTILATOR Blood Gas Ventilator Setting PC/AC PC/AC PC/AC Test 05/15/16 05/15/16 07:05 09:00 Blood Gas Puncture Site CENTRAL LINE ART LINE Blood Gas Patient Temperature 98.6 98.6 Venous Blood pH 6.96 (7.360-7.400) Venous Blood Partial Pressure 47 mmHg (44-48) CO2 Venous Blood Partial Pressure 40 mmHg (35-40) O2 Venous Blood HCO3 10 mmol/L (22-26) Venous Blood Oxygen Saturation 64 % (70-76) Venous Blood Oxygen Content 9.9 Vol % (9.0-17.0) Venous Blood Base Excess -19.5 mmol/L (-2-2) Oxygen Delivery Device VENTILATOR VENTILATOR Blood Gas Ventilator Setting PC/AC PC/AC Blood Gas Inspired Oxygen 100 % 100 % Blood Gas HCO3 13 mmol/L (22-26) Blood Gas Base Excess -15.1 mmol/L (-2-2) Blood Gas Oxygen Saturation 88 % (90-100) Arterial Blood pH 7.10 (7.380-7.420) Arterial Blood Partial 43 mmHg (38-42) Pressure CO2 Arterial Blood Partial 64 mmHg Pressure O2 (61-120) Arterial Blood Oxygen Content 11.8 Vol % (12.0-20.0) Arterial Blood 1.1 % (0-4) Carboxyhemoglobin Arterial Blood Methemoglobin 1.3 % (0-2) Blood Gas Hemoglobin 9.4 G/DL (12.0-16.0) Objective Remarks GENERAL: Middle-aged male, lying in bed, intubated, sedated, paralyzed critically ill HEENT: Pupils 4 mm, equal, reactive, conjugate. Mucous membranes are moist. NECK: Trachea is midline. Neck veins flat. Left IJ triple-lumen catheter site is clean and dry, dressing intact. Right IJ dialysis catheter site is clean and dry, dressing intact. CHEST: Pressure control/assist-control 22/8/100%, rate of 20, minute ventilation 13. Equal chest rise. Bilateral coarse rales. CARDIOVASCULAR: Tachycardic rate, regular rhythm. S1, S2 without appreciable murmurs. ABDOMEN: Obese, soft, moderately distended. No guarding. Bladder pressures 13 MUSCULOSKELETAL: No peripheral edema. There is a right femoral arterial line with a moderate amount of oozing from around the catheter. The dressing is intact. Distal pulses are 1+. There is some early mottling noted in the lower extremities. NEUROLOGICAL: RASS -5. Intubated and paralyzed. A/P Assessment and Plan Assessment: This is a 51-year-old male with history of hypertension, diabetes, alcohol abuse who now has presented with severe acute diabetic ketoacidosis as well as severe acute pancreatitis. He is in life-threatening refractory distributive shock and multiorgan system failure secondary to his DKA and pancreatitis. I performed a critical care bedside ultrasound evaluation of his heart which demonstrates hyperdynamic LV, preserved RV function, significantly collapsed IVC, no pericardial effusion. He still has a high volume requirement is still volume responsive. His acidosis is also refractory, and I have contacted nephrology and we will begin emergent CRRT. I have talked with his . I called the home critical he has, however he is young and for now our goals are aggressive. NEURO: Acute toxic metabolic encephalopathy Alcohol abuse --05/14 CT brain: negative acute --Thiamine 100mg iv daily --versed 5mg/hr iv for sedation and amnesia while on neuromuscular blockade. --continue Nimbex drip for abdominal compartment syndrome as well as for refractory hypoxia. --Monitor for evidence of alcohol withdrawal --RASS goal -5 while intubated. RESP: Acute hypoxic and hypercarbic respiratory failure ARDS --continue PC/AC. will attempt to increase PEEP, but with current hemodynamic instability, he may not tolerate increased intrathoracic pressure. --does not meet criteria for SBT today given instability --vent bundle --ABG q2h while in refractory acidosis. CV: Refractory Distributive Shock History of hypertension Type II NSTEMI --Lactate continues to rise. q6h lactates to trend --Continue MIVF NS @ 250cc/hr --Continue Epinephrine, will attempt to wean this to 10mcg/min if possible. --continue vasopressin at 0.03 units/min --continue norepinephrine at 50mcg/min --continue phenylephrine at 250mcg/min. will attempt to wean this after epi if possible to 100mcg/min. --goal MAP > 65mmHg. --Hold home medications including Norvasc (due to hypotension) and lisinopril ( due to hypotension and JASMIN). --trend troponins. likely secondary to demand ischemia --2D echocardiogram to eval for regional wall motion abnormalities. RENAL: Severe Acute Kidney Injury requiring Renal Replacement Therapy Acute Rhabdomyolysis --renal consulted. --placed dialysis catheter --start CVVHD: true zero, will not plan to pull fluid today. --q6h BMP for electrolyte monitoring --qday mg, phos. --continue martel with q1h uop. --trend CK q6h FEN/GI: Acute severe pancreatitis Intravascular hypovolemia acute protein calorie malnutrition-mild Upper GI Bleed Severe anion gap metabolic acidosis Diabetic Ketoacidosis Lactic Acidosis --NPO --MIVF: NS @ 250cc/hr --Bicarb drip @ 150cc/hr. --trend H&H q6h --BMP, mg,phos q6h --Lactates q6h --GI consulted. too unstable for endoscopy. --protonix drip --will need TPN for malnutrition. will hold today given shock --trend daily LFTs, Lipase 05/14 CT abdomen and pelvispancreatitis. No pseudocyst HEME/ID: Septic Shock secondary to acute pancreatitis DIC Thrombocytopenia Anemia secondary to acute blood loss Leukopenia --05/14 flu negative --05/14 blood cultures, urine culture, NGTD --Zosyn 2.25g IV q8h, renal dosing --Linezolid --Micafungin --Coags, fibrinogen q6h --goal INR < 1.5 with active bleeding --goal Hgb > 9 in the setting of refractory shock and evidence of inability to clear lactate despite max pressors. will liberalize this to >7 if we start to clear our lactate. --goal Plt > 50K. --q6h H&H --qday CBC ENDOCRINE: Diabetic Ketoacidosis Presumed Adrenal Insufficiency --Insulin drip with q1h accuchecks --hydrocortisone 100mg iv q8h PROPHYLAXIS: GI Prophylaxis: --Protonix infusion DVT Prophylaxis: --SCDs --holding pharmacologic DVT prophylaxis in the setting of DIC and thrombocytopenia and GI bleed. ACCESS: -- 05/14 Left IJ triple lumen catheter -- 05/15 right femoral arterial line -- 05/15 right IJ dialysis catheter -- Martel Dispo: remain in the ICU. he is very critically ill. I continue to update the family at close intervals. Full code This patient remains critically ill with multiple organ systems which are a threat to life. I have spent in excess of 115 minutes discontinuously in the care and management of this patient. This time is exclusive of procedures, and includes, but is not limited to, evaluation of the patient, review of the medical record, discussions with family, consultants, nursing staff, or respiratory therapy, and documentation in the medical record. Elan Santos MD May 15, 2016 09:50
[2016-05-15] MEDS: THIAMINE INJ 100 MG in SODIUM CHLORIDE 0.9% INJ 100 ML IV SCH (09:54)
[2016-05-15] MEDS: HYDROCORTISONE SOD SUCCINATE 100 MG VIAL IV PUSH SCH ×2 (09:54→17:22)
[2016-05-15] MEDS: INSULIN REGULAR (IV INFUSION) 100 UNITS in SODIUM CHLORIDE 0.9% INJ 99 ML IV SCH ×2 (10:10→16:31)
[2016-05-15] MEDS: WATER IV SCH ×2 (10:21)
[2016-05-15] MEDS: DEXTROSE 5% IV SCH ×2 (10:21)
[2016-05-15] MEDS: VASOPRESSIN IV SCH ×2 (10:21)
[2016-05-15 10:59] LABS: BLOOD GAS BASE EXCESS -17.1 mmol/L (-2-2); BLOOD GAS CARBOXYHEMOGLOBIN 1.2 % (0-4); BLOOD GAS HCO3 11 mmol/L (22-26); BLOOD GAS O2 HGB SATURATION 83 % (90-100); BLOOD GAS OXYGEN CONTENT 10.8 Vol % (12.0-20.0); BLOOD GAS PCO2 39 mmHg (38-42); BLOOD GAS PO2 58 mmHg (61-120); BLOOD GAS TOTAL HGB 9.2 G/DL (12.0-16.0); TEMP CORR TO 98.6
[2016-05-15 11:00] LABS: CRITICAL VALUE YES; OXYGEN DEVICE VENTILATOR
[2016-05-15 11:01] LABS: FIO2 100 %; VENT SETTINGS PC/AC
[2016-05-15 11:02] LABS: DRAW SITE ART LINE; NUMBER OF ARTERIAL PUNCTURES 0; STAT NO; ULNAR PULSE PRESENT
[2016-05-15 11:03] LABS: VENT SETTINGS PC/AC
--- NOTE | 2016-05-15 11:07 | PD.CONS ---
HPI History of Present Illness 51-year-old male with past mental history of hypertension, EtOH abuse presents to [facility] emergency department after he has been ill for 3 days. His states that he came home from work on 05/12/16 and was short of breath. He went to an outpatient clinic where he was diagnosed with an upper respiratory infection and prescribed steroids, amoxicillin, Cheratussin. He then developed vomiting with too many episodes of emesis to count. She states that she was told by the physician to hold steroids and cough medicine and just administer amoxicillin however he was unable to keep it down. She denies any hematemesis. He had previously denied abdominal pain but did report some abdominal discomfort during palpation in the ED. He had denied headache or neck pain to his . His last bowel movement was here in the ED. There is no melena. His states that she noticed he was breathing abnormally and had was becoming progressively more disoriented since yesterday evening. ED workup demonstrated that he was in DKA, acute kidney injury, and pancreatitis with lipase greater than 30,000. He has no prior history of pancreatitis. He had an EGD inserted and a large amount of coffee ground emesis was obtained. H&H initially was 12.8/41.3 and now down to 8.4/24.3 but he has received at least 12 to 13 of fluid. He is sedated on the ventilator and has multisystem organ failure. Probable underlying GI bleed and DIC. 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 Hx of binge drinking, (Pavithra Vasquez) Review of Systems ROS unable to obtain review of symptoms, sedated on vent (Pavithra Vasquez) GI Exam Vitals I&O Vital Signs Date Time Temp Pulse Resp B/P Pulse Ox O2 Delivery O2 Flow Rate FiO2 05/15/16 08:04 85 100 05/15/16 06:05 97.3 126 22 105/59 52 05/15/16 06:00 127 05/15/16 05:50 97.7 122 22 108/59 83 05/15/16 05:00 113 94/44 05/15/16 04:42 92 100 05/15/16 04:30 97.6 143 22 80/54 05/15/16 04:15 98.3 22 85/60 94 05/15/16 04:00 100 05/15/16 04:00 98.3 100 24 85/60 94 05/15/16 02:15 50 05/15/16 02:00 96 05/15/16 00:30 113 05/15/16 00:00 113 05/15/16 00:00 98.0 113 34 99/54 100 05/14/16 23:45 92/54 05/14/16 21:15 76 05/14/16 21:15 97.8 76 24 63/41 95 05/14/16 21:00 75 18 122/85 98 Room Air 05/14/16 20:00 77 18 86/52 98 Room Air 05/14/16 19:00 94.0 73 16 87/66 98 Room Air 05/14/16 17:47 75 16 96/57 98 Room Air 05/14/16 17:05 94.2 05/14/16 16:00 76 16 100/59 100 Room Air 05/14/16 15:00 79 16 115/61 100 Room Air 05/14/16 14:15 Room Air 05/14/16 14:09 92.9 67 24 108/56 I/O 05/14/16 05/14/16 05/14/16 05/15/16 05/15/16 05/15/16 07:00 15:00 23:00 07:00 15:00 23:00 Intake Total 2676 ml 5808 ml Output Total 120 ml 1025 ml Balance 2556 ml 4783 ml Intake IV Total 2676 ml 5271 ml Packed Cells 537 ml Output Urine Total 120 ml 175 ml Gastric Drainage Total 850 ml # Bowel Movements 0 0 Imaging Last 24 hours Impressions Chest X-Ray 05/15/16 0000 Signed Impressions: Service Date/Time: Sunday, May 15, 2016 08:29 - CONCLUSION: No significant change has occurred. Brian Oneill MD Chest X-Ray 05/15/16 0000 Signed Impressions: Service Date/Time: Sunday, May 15, 2016 02:42 - CONCLUSION: Endotracheal tube now in good position. Other tubes and catheter in good position. Mild bibasilar atelectasis Florentino Erickson MD Chest X-Ray 05/15/16 0000 Signed Impressions: Service Date/Time: Sunday, May 15, 2016 00:24 - CONCLUSION: Normal examination. Left IJ central venous catheter has been placed with its tip overlying the SVC and no evidence of pneumothorax Florentino Erickson MD Abdomen/Pelvis CT 05/14/16 1655 Signed Impressions: Service Date/Time: Saturday, May 14, 2016 17:31 - CONCLUSION: 1. Acute pancreatitis without hemorrhage or pseudocyst formation. No calcified stone or ductal dilatation observed. 2. Small volume ascites. 3. Mild wall thickening involving the duodenum secondary to the adjacent pancreatitis. Aniceto Coulter Jr., MD Chest X-Ray 05/14/16 1424 Signed Impressions: Service Date/Time: Saturday, May 14, 2016 14:33 - CONCLUSION: No evidence of acute cardiopulmonary disease. Maxwell Patiño MD Laboratory Test 05/14/16 05/14/16 05/14/16 05/14/16 14:30 15:15 15:40 19:00 White Blood Count 3.8 TH/MM3 Red Blood Count 4.18 MIL/MM3 Hemoglobin 12.8 GM/DL Hematocrit 41.3 % Mean Corpuscular Volume 98.7 FL Mean Corpuscular Hemoglobin 30.7 PG Mean Corpuscular Hemoglobin 31.0 % Concent Red Cell Distribution Width 12.7 % Platelet Count 200 TH/MM3 Mean Platelet Volume 9.5 FL Neutrophils (%) (Auto) 72.5 % Lymphocytes (%) (Auto) 22.5 % Monocytes (%) (Auto) 4.2 % Eosinophils (%) (Auto) 0.1 % Basophils (%) (Auto) 0.7 % Neutrophils # (Auto) 2.7 TH/MM3 Lymphocytes # (Auto) 0.9 TH/MM3 Monocytes # (Auto) 0.2 TH/MM3 Eosinophils # (Auto) 0.0 TH/MM3 Basophils # (Auto) 0.0 TH/MM3 CBC Comment AUTO DIFF Differential Total Cells 100 Counted Neutrophils % (Manual) 61 % Band Neutrophils % 27 % Lymphocytes % 7 % Monocytes % 3 % Neutrophils # (Manual) 3.4 TH/MM3 Metamyelocytes 2 % Differential Comment FINAL DIFF MANUAL Platelet Estimate NORMAL Platelet Morphology Comment NORMAL Red Cell Morphology Comment NORMAL Lactic Acid Level 0.4 mmol/L Urine Color LIGHT-YELLOW Urine Turbidity CLEAR Urine pH 5.0 Urine Specific [place] 1.018 Urine Protein 30 mg/dL Urine Glucose (UA) 1000 mg/dL Urine Ketones 40 mg/dL Urine Occult Blood LARGE Urine Nitrite NEG Urine Bilirubin NEG Urine Urobilinogen LESS THAN 2.0 MG/DL Urine Leukocyte Esterase NEG Urine RBC 1 /hpf Urine WBC 5 /hpf Urine Squamous Epithelial <1 /hpf Cells Urine Bacteria RARE /hpf Urine Mucus FEW /lpf Microscopic Urinalysis Comment CULT NOT INDICATED Sodium Level 112 MEQ/L Potassium Level 6.0 MEQ/L Chloride Level 74 MEQ/L Carbon Dioxide Level 5.5 MEQ/L Anion Gap 33 MEQ/L Blood Urea Nitrogen 85 MG/DL Creatinine 3.44 MG/DL Estimat Glomerular Filtration 19 ML/MIN Rate Random Glucose 1208 MG/DL Calcium Level 7.7 MG/DL Phosphorus Level 7.8 MG/DL Magnesium Level 2.6 MG/DL Total Bilirubin 0.5 MG/DL Aspartate Amino Transf 189 U/L (AST/SGOT) Alanine Aminotransferase 63 U/L (ALT/SGPT) Alkaline Phosphatase 86 U/L Troponin I 0.11 NG/ML Total Protein 5.4 GM/DL Albumin 2.8 GM/DL Lipase GREATER THAN 36500 U/L B-Hydroxybutyrate 12.23 MMOL/L Prothrombin Time 11.4 SEC Prothromb Time International 1.0 RATIO Ratio Activated Partial 32.1 SEC Thromboplast Time Test 05/14/16 05/14/16 05/14/16 05/14/16 19:45 20:15 20:50 23:00 Random Glucose 1061 MG/DL 951 MG/DL 951 MG/DL Nasal Screen MRSA (PCR) NEGATIVE Troponin I 0.12 NG/ML 0.16 NG/ML Sodium Level 126 MEQ/L Potassium Level 4.7 MEQ/L Chloride Level 91 MEQ/L Carbon Dioxide Level 10.2 MEQ/L Blood Urea Nitrogen 92 MG/DL Creatinine 4.29 MG/DL Calcium Level 7.6 MG/DL Phosphorus Level 7.9 MG/DL Magnesium Level 2.7 MG/DL Anion Gap 25 MEQ/L Estimat Glomerular Filtration 15 ML/MIN Rate Total Creatine Kinase 60980 U/L Creatine Kinase MB 135.8 NG/ML Creatine Kinase MB % 1.2 % Test 05/15/16 05/15/16 05/15/16 05/15/16 00:55 03:30 03:38 03:42 Blood Gas Puncture Site CENTRAL LINE RT FEMORAL Blood Gas Patient Temperature 98.6 98.6 Venous Blood pH 7.08 Venous Blood Partial Pressure 28 mmHg CO2 Venous Blood Partial Pressure 41 mmHg O2 Venous Blood HCO3 8 mmol/L Venous Blood Oxygen Saturation 70 % Venous Blood Oxygen Content 10.2 Vol % Venous Blood Base Excess -20.2 mmol/L Blood Gas Inspired Oxygen 21 % 100 % Random Glucose 572 MG/DL 435 MG/DL Lactic Acid Level 5.6 mmol/L 9.4 mmol/L Blood Gas HCO3 14 mmol/L Blood Gas Base Excess -13.2 mmol/L Blood Gas Oxygen Saturation 32 % Arterial Blood pH 7.12 Arterial Blood Partial 46 mmHg Pressure CO2 Arterial Blood Partial 21 mmHg Pressure O2 Arterial Blood Oxygen Content 4.1 Vol % Arterial Blood 1.0 % Carboxyhemoglobin Arterial Blood Methemoglobin 1.5 % Blood Gas Hemoglobin 9.0 G/DL Oxygen Delivery Device VENTILATOR Blood Gas Ventilator Setting PC/AC White Blood Count 2.8 TH/MM3 Red Blood Count 2.73 MIL/MM3 Hemoglobin 8.4 GM/DL Hematocrit 24.3 % Mean Corpuscular Volume 89.1 FL Mean Corpuscular Hemoglobin 30.8 PG Mean Corpuscular Hemoglobin 34.6 % Concent Red Cell Distribution Width 12.1 % Platelet Count 83 TH/MM3 Mean Platelet Volume 8.5 FL Neutrophils (%) (Auto) 65.6 % Lymphocytes (%) (Auto) 10.9 % Monocytes (%) (Auto) 23.2 % Eosinophils (%) (Auto) 0.2 % Basophils (%) (Auto) 0.1 % Neutrophils # (Auto) 1.8 TH/MM3 Lymphocytes # (Auto) 0.3 TH/MM3 Monocytes # (Auto) 0.6 TH/MM3 Eosinophils # (Auto) 0.0 TH/MM3 Basophils # (Auto) 0.0 TH/MM3 CBC Comment AUTO DIFF Differential Total Cells 100 Counted Neutrophils % (Manual) 62 % Band Neutrophils % 9 % Lymphocytes % 6 % Monocytes % 10 % Neutrophils # (Manual) 2.4 TH/MM3 Metamyelocytes 12 % Myelocytes 1 % Differential Comment FINAL DIFF MANUAL Platelet Estimate LOW Platelet Morphology Comment NORMAL Red Cell Morphology Comment NORMAL Sodium Level 136 MEQ/L Potassium Level 4.6 MEQ/L Chloride Level 99 MEQ/L Carbon Dioxide Level 15.2 MEQ/L Anion Gap 22 MEQ/L Blood Urea Nitrogen 85 MG/DL Creatinine 3.86 MG/DL Estimat Glomerular Filtration 17 ML/MIN Rate Calcium Level 6.9 MG/DL Protein Corrected Calcium 8.6 MG/DL Phosphorus Level 5.3 MG/DL Magnesium Level 2.3 MG/DL Total Bilirubin 0.3 MG/DL Direct Bilirubin 0.1 MG/DL Indirect Bilirubin 0.2 MG/DL Aspartate Amino Transf 485 U/L (AST/SGOT) Alanine Aminotransferase 199 U/L (ALT/SGPT) Alkaline Phosphatase 60 U/L Total Creatine Kinase 8058 U/L Creatine Kinase MB 92.3 NG/ML Creatine Kinase MB % 1.1 % Troponin I 0.33 NG/ML Total Protein 4.1 GM/DL Albumin 2.7 GM/DL Lipase 81482 U/L Thyroid Stimulating Hormone 0.670 uIU/ML 3rd Gen B-Hydroxybutyrate 2.62 MMOL/L Blood Type O POSITIVE Test 05/15/16 05/15/16 05/15/16 05/15/16 03:45 03:49 04:43 05:05 Blood Type O POSITIVE Antibody Screen NEGATIVE Crossmatch Leukocyte-Reduced Leukocyte-Reduced Red Blood Red Blood Cells Cells Blood Bank Comment Blood Gas Puncture Site ART LINE Blood Gas Patient Temperature 98.6 Blood Gas HCO3 8 mmol/L Blood Gas Base Excess -20.8 mmol/L Blood Gas Oxygen Saturation 79 % Arterial Blood pH 6.98 Arterial Blood Partial 37 mmHg Pressure CO2 Arterial Blood Partial 55 mmHg Pressure O2 Arterial Blood Oxygen Content 10.0 Vol % Arterial Blood 1.0 % Carboxyhemoglobin Arterial Blood Methemoglobin 1.4 % Blood Gas Hemoglobin 8.9 G/DL Oxygen Delivery Device VENTILATOR Blood Gas Ventilator Setting PC/AC Blood Gas Inspired Oxygen 100 % Test 05/15/16 05/15/16 05/15/16 05/15/16 05:58 06:52 07:05 07:50 Blood Bank Comment Blood Gas Puncture Site ART LINE CENTRAL LINE Blood Gas Patient Temperature 98.6 98.6 Blood Gas HCO3 9 mmol/L Blood Gas Base Excess -20.3 mmol/L Blood Gas Oxygen Saturation 81 % Arterial Blood pH 6.99 Arterial Blood Partial 39 mmHg Pressure CO2 Arterial Blood Partial 55 mmHg Pressure O2 Arterial Blood Oxygen Content 12.2 Vol % Arterial Blood 0.9 % Carboxyhemoglobin Arterial Blood Methemoglobin 1.4 % Blood Gas Hemoglobin 10.7 G/DL Oxygen Delivery Device VENTILATOR VENTILATOR Blood Gas Ventilator Setting PC/AC PC/AC Blood Gas Inspired Oxygen 100 % 100 % Venous Blood pH 6.96 Venous Blood Partial Pressure 47 mmHg CO2 Venous Blood Partial Pressure 40 mmHg O2 Venous Blood HCO3 10 mmol/L Venous Blood Oxygen Saturation 64 % Venous Blood Oxygen Content 9.9 Vol % Venous Blood Base Excess -19.5 mmol/L Prothrombin Time 18.5 SEC Prothromb Time International 1.6 RATIO Ratio Activated Partial 82.8 SEC Thromboplast Time Fibrinogen 115 mg/dL Test 05/15/16 09:00 Blood Gas Puncture Site ART LINE Blood Gas Patient Temperature 98.6 Blood Gas HCO3 13 mmol/L Blood Gas Base Excess -15.1 mmol/L Blood Gas Oxygen Saturation 88 % Arterial Blood pH 7.10 Arterial Blood Partial 43 mmHg Pressure CO2 Arterial Blood Partial 64 mmHg Pressure O2 Arterial Blood Oxygen Content 11.8 Vol % Arterial Blood 1.1 % Carboxyhemoglobin Arterial Blood Methemoglobin 1.3 % Blood Gas Hemoglobin 9.4 G/DL Oxygen Delivery Device VENTILATOR Blood Gas Ventilator Setting PC/AC Blood Gas Inspired Oxygen 100 % Lactic Acid Level 17.4 mmol/L Date/Time Procedure Status Source Growth 05/14/16 19:45 Influenza Types A,B Antigen (CYNDEE) - Final Complete Nasal Aspirate NEGATIVE FOR FLU A AND B ANTIGEN.... 05/14/16 19:00 Aerobic Blood Culture Received Blood Peripheral Pending 05/14/16 19:00 Anaerobic Blood Culture Received Blood Peripheral Pending Physical Examination HEENT: Pupils round and reactive to light; normocephalic; atraumatic; no jaundice. Throat is clear. NECK: Neck is supple, no JVD, no lymphadenopathy. CHEST: Chest is clear to auscultation CARDIAC: Regular rate and rhythm with no murmur gallop or rubs. ABDOMEN: Distended seems tender epigastric area no hepatosplenomegaly; bowel sounds are present in all four quadrants. EXTREMITIES: No clubbing, cyanosis, or edema. SKIN: Normal; no rash; no jaundice. BOX OFFICE CLERK: sedated on vent (Pavithra Vasquez) Assessment and Plan Assessment: (1) Pancreatitis (2) GI (gastrointestinal bleed) (3) DKA (diabetic ketoacidoses) (4) ETOH abuse (5) Septic shock (6) Elevated LFTs Plan: multifactorial, continue to follow Plan Abdomen/Pelvis CT 05/14/16 >>Impressions: - CONCLUSION: 1. Acute pancreatitis without hemorrhage or pseudocyst formation. No calcified stone or ductal dilatation observed. 2. Small volume ascites. 3. Mild wall thickening involving the duodenum secondary to the adjacent pancreatitis This is a 51 year old male who was admitted with acute pancreatitis, has Hx of ETOH use, Initial Lipase >30,000, vomiting, multiple episodes, he did have a BM in ED with no blood seen. He coded overnight, placed on a vent. When an NG was inserted large volume coffee ground drainage was obtained.He is now in multisystem organ failure, DKA and profound shock and critically ill and likely in early DIC with underlying gastritis and GI bleed. Plan -Lipase in am -Follow H&H , transfuse PRBC's PRN to keep Hbg > 7.0 -IV fluids -Will need TPN in next 24 hours -EGD when stable -PPIs -Shock, mulit-system organ failure and possible DIC per curator -Further recommendations to follow Thank for the consult Patient was seen and examined by Dr. Johnson and myself this consultation is written on his behalf. - (Pavithra Vasquez) Physician Comments Seen and examined, plan as above, critical and unstable for now, will follow up with you for further recommendations when more stable. (Deep Johnson MD) Problem Qualifiers (1) Pancreatitis: Qualified Code: K85.90 - Acute pancreatitis, unspecified complication status, unspecified pancreatitis type (2) GI (gastrointestinal bleed): (3) DKA (diabetic ketoacidoses): Qualified Code: E13.11 - Diabetic ketoacidosis with coma associated with other specified diabetes mellitus Pavithra Vasquez May 15, 2016 11:06 Deep Johnson MD May 15, 2016 11:36
--- NOTE | 2016-05-15 11:20 | RADRPT ---
EXAM DATE/TIME: 05/15/2016 10:36 [facility] COMPARISON: CHEST SINGLE AP, May 15, 2016, 8:29. INDICATIONS : Post central line placement. MEDICAL HISTORY : Unobtainable. SURGICAL HISTORY : Unobtainable. ENCOUNTER: Initial ACUITY: 1 day PAIN SCORE: Non-responsive. LOCATION: Bilateral chest FINDINGS: Left subclavian central venous catheter tip overlies the SVC. NG tube courses beneath the diaphragm. Right jugular central venous catheter tip overlies expected location of the right atrium. There is ca rdiomegaly, bilateral lower lobe consolidation and probable right effusion. Endotracheal tube tip at the level of the clavicles. CONCLUSION: Right jugular line as above. Brian Oneill MD on May 15, 2016 at 11:18 Board Certified Radiologist. This report was verified electronically.
[2016-05-15] MEDS ORDERED: MAGNESIUM SULFATE INJ 2 GM in SODIUM CHLORIDE 0.9% INJ 96 ML IV ONE (12:00)
[2016-05-15] MEDS ORDERED: MAGNESIUM SULFATE 2 GM/NS 100 ML IV ONE ×2 (12:00)
[2016-05-15 12:01] LABS: HEMATOCRIT 27.7 % (39.0-51.0)
--- NOTE | 2016-05-15 12:18 | PD.PROCEDR ---
Procedure Note Procedure Central Line Procedure Note Right IJ 14 [place] dialysis catheter Diagnosis: Acute pancreatitis Indications: acute kidney injury requiring renal placement therapy Consent: Written consent was obtained from the and medical decision maker Anesthesia: Versed 5 mg IV, lidocaine 1% locally Description of the Procedure: The patient was placed in the supine, mild- Trendelenburg position. The area was prepped and draped sterilely. A 19g needle was inserted under negative pressure aspiration and dark venous blood was obtained. A guidewire was inserted easily without resistance. A small incision was made using a #11 blade. Using a modified Seldinger technique, the serial dilators and 14 [place], 20 cm catheter were advanced over the guidewire without resistance. All ports were aspirated and flushed, and had brisk blood return. The line was secured at 20 cm at the skin using 2-0 silk interrupted sutures. A Biopatch and Transparent sterile dressing were applied. There were no immediate complications noted. There was minimal EBL. The patient tolerated the procedure well. Ultrasound Guidance: Ultrasound guidance was used to identify the right internal jugular vein. The vascular anatomy of the right anterior neck was normal. The vessel was cannulated under direct, real-time ultrasound visualization. After placement of the guidewire, confirmation of the guidewire in the lumen of the vessel was made using ultrasound visualization, before dilation of the tract. A Chest x-ray has been ordered. I personally performed the procedure. Elan Santos MD May 15, 2016 12:18
[2016-05-15 12:19] LABS: APTT (PATIENT) 51.1 SEC (24.3-30.1); INTERNATIONAL NORMALIZED RATIO 1.6 RATIO
--- NOTE | 2016-05-15 12:30 | PD.CONS ---
HPI Service Nephrology Consult Requested By Dr. Santos Reason for Consult ARF Metabolic acidosis Primary Care Physician No Primary Care Physician History of Present Illness 51 year old with history of hypertension, alcoholism who is sick for 3 days, per records he did some drinking on , he was sick on 05/12 when he complained of shortness of breath, he went to out patient clinic and was diagnosed with upper respiratory infection given steroids, Amoxicillin and Cheratussin, he then developed persistent nausea and vomiting, he was told to hold steroids and take Amoxicillin, he couldn't hold anything down and complain of abdominal pain. in the ER he was diagnosed with acute pancreatitis, he has upper GI bleeding, respiratory failure , severe metabolic acidosis, DKA, Hyponatremia, shock requiring vasopressors and ARF. Review of Systems ROS Limitations: Clinical Condition Past Family Social History Allergies: Coded Allergies: No Known Allergies (Unverified , 05/14/16) Past Medical History Hypertension use of alcohol binge drinking although was trying to recover Reported Medications Reported Meds & Active Scripts Active Reported Prednisone 20 Mg Tab 20 Mg PO BID Amoxicillin 875 Mg Tab 875 Mg PO BID Lisinopril 40 Mg Tab 40 Mg PO DAILY Amlodipine (Amlodipine Besylate) 5 Mg Tab 5 Mg PO DAILY Active Ordered Medications Current Medications Medications (Trade) Dose Ordered Sig/Farrah Route Start Time Stop Time Status Last Admin (NS Flush) 2 ml UNSCH PRN IV FLUSH 05/14/16 18:30 05/15/16 09:40 (NS Flush) 2 ml BID IV FLUSH 05/14/16 21:00 05/15/16 09:40 (Tylenol) 650 mg Q6H PRN PO 05/14/16 18:30 (Zofran Inj) 4 mg Q6H PRN IV 05/14/16 18:30 (Colace) 100 mg BID PO 05/14/16 21:00 Miscellaneous Information 1 Q361D XX 05/14/16 18:30 (Chlorhexidine 2% Cloth) 3 pack Taper DAILY@04 TOP 05/15/16 04:00 05/11/17 03:59 Chlorhexidine Gluconate 3 pack 3 pack UNSCH PRN TOP 05/14/16 18:30 Piperacillin Sod/ Tazobactam Sod 50 ml @ 100 mls/hr Q8H IV 05/14/16 20:00 05/15/16 06:07 (Thiamine Inj/NS Inj) 101 ml @ 101 mls/hr DAILY IV 05/14/16 21:00 05/15/16 09:54 (Brethine Inj) 1 mg UNSCH PRN SQ 05/15/16 00:15 Albumin Human 25 gm 25 gm Q6HR IV 05/15/16 00:15 05/15/16 10:24 (fentaNYL DRIP) 250 ml @ 0 mls/hr TITRATE IV 05/15/16 02:15 Midazolam HCl 2 mg 2 mg Q15M PRN IV PUSH 05/15/16 02:15 05/15/16 06:44 (Protonix Inj/NS Inj) 100 ml @ 10 mls/hr Q10H IV 05/15/16 03:15 05/15/16 09:54 Hydrocortisone Sodium Succinate 100 mg 100 mg Q8H IV PUSH 05/15/16 03:00 05/15/16 09:54 Cisatracurium Besylate 100 mg/ Sodium Chloride 250 ml @ 0 mls/hr TITRATE IV 05/15/16 04:00 05/15/16 04:56 Sodium Chloride 250 ml @ 15 mls/hr ONCE ONCE IV 05/15/16 04:00 05/15/16 20:39 05/15/16 04:00 Sodium Bicarbonate 150 meq/Sterile Water 1,000 ml @ 150 mls/hr Q6H40M IV 05/15/16 04:00 05/15/16 09:40 Epinephrine HCl 8 mg/Dextrose 258 ml @ 0 mls/hr TITRATE IV 05/15/16 04:15 05/15/16 09:38 (Levophed Inj/ D5W Inj) 250 ml @ 0 mls/hr TITRATE IV 05/15/16 04:15 05/15/16 09:39 Terbutaline Sulfate 1 mg 1 mg UNSCH PRN SQ 05/15/16 04:45 Phenylephrine HCl 160 mg/Dextrose 500 ml @ 0 mls/hr TITRATE IV 05/15/16 04:45 05/15/16 04:56 Sodium Chloride 250 ml @ 15 mls/hr ONCE ONCE IV 05/15/16 04:45 05/15/16 21:24 05/15/16 04:45 (Pitressin Inj/ D5W 100 ml Inj) 100 ml @ 1.8 mls/hr Q24H IV 05/15/16 05:00 05/15/16 10:21 Chlorhexidine Gluconate 15 ml 15 ml BID@08,20 MT 05/15/16 08:00 05/15/16 08:00 Linezolid 300 ml @ 300 mls/hr Q12H IV 05/15/16 06:00 05/15/16 06:00 Micafungin Sodium 100 mg/Sodium Chloride 100 ml @ 100 mls/hr Q24H IV 05/15/16 07:00 05/15/16 07:00 Sodium Chloride 250 ml @ 15 mls/hr ONCE ONCE IV 05/15/16 06:00 05/15/16 22:39 05/15/16 06:00 Midazolam HCl 100 ml @ 0 mls/hr TITRATE IV 05/15/16 06:45 (NovoLIN R (IV INFUSION)/NS Inj) 100 ml @ 0 mls/hr TITRATE IV 05/15/16 09:00 05/15/16 10:10 Dextrose 25 ml 25 ml UNSCH PRN IV PUSH 05/15/16 07:00 Dextrose 1,000 ml @ 30 mls/hr Q24H IV 05/15/16 07:30 05/15/16 07:30 (Magnesium Sulfate Inj/NS Inj) 100 ml @ 50 mls/hr ONCE ONCE IV 05/15/16 12:00 05/15/16 13:59 Family History noncontributory Social History smoking quit 2 years ago, ETOH uses Vodka, binge drinking Physical Exam Vital Signs Vital Signs Date Time Temp Pulse Resp B/P Pulse Ox O2 Delivery O2 Flow Rate FiO2 05/15/16 08:04 85 100 05/15/16 06:05 97.3 126 22 105/59 52 05/15/16 06:00 127 05/15/16 05:50 97.7 122 22 108/59 83 05/15/16 05:00 113 94/44 05/15/16 04:42 92 100 05/15/16 04:30 97.6 143 22 80/54 05/15/16 04:15 98.3 22 85/60 94 05/15/16 04:00 100 05/15/16 04:00 98.3 100 24 85/60 94 05/15/16 02:15 50 05/15/16 02:00 96 05/15/16 00:30 113 05/15/16 00:00 113 05/15/16 00:00 98.0 113 34 99/54 100 05/14/16 23:45 92/54 05/14/16 21:15 76 05/14/16 21:15 97.8 76 24 63/41 95 05/14/16 21:00 75 18 122/85 98 Room Air 05/14/16 20:00 77 18 86/52 98 Room Air 05/14/16 19:00 94.0 73 16 87/66 98 Room Air 05/14/16 17:47 75 16 96/57 98 Room Air 05/14/16 17:05 94.2 05/14/16 16:00 76 16 100/59 100 Room Air 05/14/16 15:00 79 16 115/61 100 Room Air 05/14/16 14:15 Room Air 05/14/16 14:09 92.9 67 24 108/56 Physical Exam GENERAL: Well-nourished, well-developed very sick patient on ventilator. SKIN: Warm and dry. HEAD: Normocephalic. EYES: No scleral icterus. No injection or drainage. NECK: Supple, trachea midline. intubated CARDIOVASCULAR: Tachycardia RESPIRATORY: Breath sounds equal bilaterally. No accessory muscle use. GASTROINTESTINAL: Abdomen distended. EXTREMITIES: mottled skin NEUROLOGICAL: sedated Laboratory Laboratory Tests Test 05/14/16 05/14/16 05/14/16 05/14/16 14:30 15:15 15:40 19:00 White Blood Count 3.8 Red Blood Count 4.18 Hemoglobin 12.8 Hematocrit 41.3 Mean Corpuscular Volume 98.7 Mean Corpuscular Hemoglobin 30.7 Mean Corpuscular Hemoglobin 31.0 Concent Red Cell Distribution Width 12.7 Platelet Count 200 Mean Platelet Volume 9.5 Neutrophils (%) (Auto) 72.5 Lymphocytes (%) (Auto) 22.5 Monocytes (%) (Auto) 4.2 Eosinophils (%) (Auto) 0.1 Basophils (%) (Auto) 0.7 Neutrophils # (Auto) 2.7 Lymphocytes # (Auto) 0.9 Monocytes # (Auto) 0.2 Eosinophils # (Auto) 0.0 Basophils # (Auto) 0.0 CBC Comment AUTO DIFF Differential Total Cells 100 Counted Neutrophils % (Manual) 61 Band Neutrophils % 27 Lymphocytes % 7 Monocytes % 3 Neutrophils # (Manual) 3.4 Metamyelocytes 2 Differential Comment FINAL DIFF MANUAL Platelet Estimate NORMAL Platelet Morphology Comment NORMAL Red Cell Morphology Comment NORMAL Lactic Acid Level 0.4 Urine Color LIGHT-YELLOW Urine Turbidity CLEAR Urine pH 5.0 Urine Specific [place] 1.018 Urine Protein 30 Urine Glucose (UA) 1000 Urine Ketones 40 Urine Occult Blood LARGE Urine Nitrite NEG Urine Bilirubin NEG Urine Urobilinogen LESS THAN 2.0 Urine Leukocyte Esterase NEG Urine RBC 1 Urine WBC 5 Urine Squamous Epithelial <1 Cells Urine Bacteria RARE Urine Mucus FEW Microscopic Urinalysis Comment CULT NOT INDICATED Sodium Level 112 Potassium Level 6.0 Chloride Level 74 Carbon Dioxide Level 5.5 Anion Gap 33 Blood Urea Nitrogen 85 Creatinine 3.44 Estimat Glomerular Filtration 19 Rate Random Glucose 1208 Calcium Level 7.7 Phosphorus Level 7.8 Magnesium Level 2.6 Total Bilirubin 0.5 Aspartate Amino Transf 189 (AST/SGOT) Alanine Aminotransferase 63 (ALT/SGPT) Alkaline Phosphatase 86 Troponin I 0.11 Total Protein 5.4 Albumin 2.8 Lipase GREATER THAN 74192 B-Hydroxybutyrate 12.23 Prothrombin Time 11.4 Prothromb Time International 1.0 Ratio Activated Partial 32.1 Thromboplast Time Test 05/14/16 05/14/16 05/14/16 05/14/16 19:45 20:15 20:50 23:00 Random Glucose 1061 951 951 Nasal Screen MRSA (PCR) NEGATIVE Troponin I 0.12 0.16 Sodium Level 126 Potassium Level 4.7 Chloride Level 91 Carbon Dioxide Level 10.2 Blood Urea Nitrogen 92 Creatinine 4.29 Calcium Level 7.6 Phosphorus Level 7.9 Magnesium Level 2.7 Anion Gap 25 Estimat Glomerular Filtration 15 Rate Total Creatine Kinase 42063 Creatine Kinase MB 135.8 Creatine Kinase MB % 1.2 Test 05/15/16 05/15/16 05/15/16 05/15/16 00:55 03:30 03:38 03:42 Blood Gas Puncture Site CENTRAL LINE RT FEMORAL Blood Gas Patient Temperature 98.6 98.6 Venous Blood pH 7.08 Venous Blood Partial Pressure 28 CO2 Venous Blood Partial Pressure 41 O2 Venous Blood HCO3 8 Venous Blood Oxygen Saturation 70 Venous Blood Oxygen Content 10.2 Venous Blood Base Excess -20.2 Blood Gas Inspired Oxygen 21 100 Random Glucose 572 435 Lactic Acid Level 5.6 9.4 Blood Gas HCO3 14 Blood Gas Base Excess -13.2 Blood Gas Oxygen Saturation 32 Arterial Blood pH 7.12 Arterial Blood Partial 46 Pressure CO2 Arterial Blood Partial 21 Pressure O2 Arterial Blood Oxygen Content 4.1 Arterial Blood 1.0 Carboxyhemoglobin Arterial Blood Methemoglobin 1.5 Blood Gas Hemoglobin 9.0 Oxygen Delivery Device VENTILATOR Blood Gas Ventilator Setting PC/AC White Blood Count 2.8 Red Blood Count 2.73 Hemoglobin 8.4 Hematocrit 24.3 Mean Corpuscular Volume 89.1 Mean Corpuscular Hemoglobin 30.8 Mean Corpuscular Hemoglobin 34.6 Concent Red Cell Distribution Width 12.1 Platelet Count 83 Mean Platelet Volume 8.5 Neutrophils (%) (Auto) 65.6 Lymphocytes (%) (Auto) 10.9 Monocytes (%) (Auto) 23.2 Eosinophils (%) (Auto) 0.2 Basophils (%) (Auto) 0.1 Neutrophils # (Auto) 1.8 Lymphocytes # (Auto) 0.3 Monocytes # (Auto) 0.6 Eosinophils # (Auto) 0.0 Basophils # (Auto) 0.0 CBC Comment AUTO DIFF Differential Total Cells 100 Counted Neutrophils % (Manual) 62 Band Neutrophils % 9 Lymphocytes % 6 Monocytes % 10 Neutrophils # (Manual) 2.4 Metamyelocytes 12 Myelocytes 1 Differential Comment FINAL DIFF MANUAL Platelet Estimate LOW Platelet Morphology Comment NORMAL Red Cell Morphology Comment NORMAL Sodium Level 136 Potassium Level 4.6 Chloride Level 99 Carbon Dioxide Level 15.2 Anion Gap 22 Blood Urea Nitrogen 85 Creatinine 3.86 Estimat Glomerular Filtration 17 Rate Calcium Level 6.9 Protein Corrected Calcium 8.6 Phosphorus Level 5.3 Magnesium Level 2.3 Total Bilirubin 0.3 Direct Bilirubin 0.1 Indirect Bilirubin 0.2 Aspartate Amino Transf 485 (AST/SGOT) Alanine Aminotransferase 199 (ALT/SGPT) Alkaline Phosphatase 60 Total Creatine Kinase 8058 Creatine Kinase MB 92.3 Creatine Kinase MB % 1.1 Troponin I 0.33 Total Protein 4.1 Albumin 2.7 Lipase 39364 Thyroid Stimulating Hormone 0.670 3rd Gen B-Hydroxybutyrate 2.62 Blood Type O POSITIVE Test 05/15/16 05/15/16 05/15/16 05/15/16 03:45 03:49 04:43 05:05 Blood Type O POSITIVE Antibody Screen NEGATIVE Crossmatch Leukocyte-Reduced Leukocyte-Reduced Red Blood Red Blood Cells Cells Blood Bank Comment Blood Gas Puncture Site ART LINE Blood Gas Patient Temperature 98.6 Blood Gas HCO3 8 Blood Gas Base Excess -20.8 Blood Gas Oxygen Saturation 79 Arterial Blood pH 6.98 Arterial Blood Partial 37 Pressure CO2 Arterial Blood Partial 55 Pressure O2 Arterial Blood Oxygen Content 10.0 Arterial Blood 1.0 Carboxyhemoglobin Arterial Blood Methemoglobin 1.4 Blood Gas Hemoglobin 8.9 Oxygen Delivery Device VENTILATOR Blood Gas Ventilator Setting PC/AC Blood Gas Inspired Oxygen 100 Test 05/15/16 05/15/16 05/15/16 05/15/16 05:58 06:52 07:05 07:50 Blood Bank Comment Blood Gas Puncture Site ART LINE CENTRAL LINE Blood Gas Patient Temperature 98.6 98.6 Blood Gas HCO3 9 Blood Gas Base Excess -20.3 Blood Gas Oxygen Saturation 81 Arterial Blood pH 6.99 Arterial Blood Partial 39 Pressure CO2 Arterial Blood Partial 55 Pressure O2 Arterial Blood Oxygen Content 12.2 Arterial Blood 0.9 Carboxyhemoglobin Arterial Blood Methemoglobin 1.4 Blood Gas Hemoglobin 10.7 Oxygen Delivery Device VENTILATOR VENTILATOR Blood Gas Ventilator Setting PC/AC PC/AC Blood Gas Inspired Oxygen 100 100 Venous Blood pH 6.96 Venous Blood Partial Pressure 47 CO2 Venous Blood Partial Pressure 40 O2 Venous Blood HCO3 10 Venous Blood Oxygen Saturation 64 Venous Blood Oxygen Content 9.9 Venous Blood Base Excess -19.5 Prothrombin Time 18.5 Prothromb Time International 1.6 Ratio Activated Partial 82.8 Thromboplast Time Fibrinogen 115 Test 05/15/16 05/15/16 09:00 10:49 Blood Gas Puncture Site ART LINE ART LINE Blood Gas Patient Temperature 98.6 98.6 Blood Gas HCO3 13 11 Blood Gas Base Excess -15.1 -17.1 Blood Gas Oxygen Saturation 88 83 Arterial Blood pH 7.10 7.08 Arterial Blood Partial 43 39 Pressure CO2 Arterial Blood Partial 64 58 Pressure O2 Arterial Blood Oxygen Content 11.8 10.8 Arterial Blood 1.1 1.2 Carboxyhemoglobin Arterial Blood Methemoglobin 1.3 2.0 Blood Gas Hemoglobin 9.4 9.2 Oxygen Delivery Device VENTILATOR VENTILATOR Blood Gas Ventilator Setting PC/AC PC/AC Blood Gas Inspired Oxygen 100 100 Lactic Acid Level 17.4 Date/Time Procedure Status Source Growth 05/14/16 19:45 Influenza Types A,B Antigen (CYNDEE) - Final Complete Nasal Aspirate NEGATIVE FOR FLU A AND B ANTIGEN.... 05/14/16 19:00 Aerobic Blood Culture - Preliminary Resulted Blood Peripheral NO GROWTH IN 1 DAY 05/14/16 19:00 Anaerobic Blood Culture - Preliminary Resulted Blood Peripheral NO GROWTH IN 1 DAY Result Diagram: 05/15/16 0338 05/15/16 0338 Imaging Last Impressions Chest X-Ray 05/15/16 0000 Signed Impressions: Service Date/Time: Sunday, May 15, 2016 10:36 - CONCLUSION: Right jugular line as above. Brian Oneill MD Abdomen/Pelvis CT 05/14/16 1655 Signed Impressions: Service Date/Time: Saturday, May 14, 2016 17:31 - CONCLUSION: 1. Acute pancreatitis without hemorrhage or pseudocyst formation. No calcified stone or ductal dilatation observed. 2. Small volume ascites. 3. Mild wall thickening involving the duodenum secondary to the adjacent pancreatitis. Aniceto Coulter Jr., MD Head CT 05/14/16 0000 Signed Impressions: Service Date/Time: Saturday, May 14, 2016 20:26 - CONCLUSION: Motion degraded. No acute abnormality demonstrated. Maxwell Patiño MD Assessment and Plan Problem List: (1) ARF (acute renal failure) Plan: due to septic shock and circulatory collapse, he is in need for CRRT, he is critically ill, he has active GI Bleeding, will do CRRT without heparin, see if he can tolerate it his prognosis is guarded to poor due to severity of Pancreatitis with associated complications (2) Acidosis, metabolic Plan: severe start CRRT (3) DKA (diabetic ketoacidoses) Plan: on Insulin drip (4) Pancreatitis Plan: lipase> 30 k, now [id number] (5) GI (gastrointestinal bleed) Plan: PRBC given GI following Problem Qualifiers (1) ARF (acute renal failure): Qualified Code: N17.9 - Acute renal failure, unspecified acute renal failure type (2) DKA (diabetic ketoacidoses): Qualified Code: E13.11 - Diabetic ketoacidosis with coma associated with other specified diabetes mellitus (3) Pancreatitis: Qualified Code: K85.90 - Acute pancreatitis, unspecified complication status, unspecified pancreatitis type (4) GI (gastrointestinal bleed): Radha Easton MD May 15, 2016 12:30
[2016-05-15 12:44] LABS: BICARBONATE 12.7 MEQ/L (21.0-32.0); MAGNESIUM 2.3 MG/DL (1.5-2.5); POTASSIUM 3.5 MEQ/L (3.5-5.1)
[2016-05-15 12:56] LABS: CKMB 70.1 NG/ML (0.5-3.6)
[2016-05-15] MEDS ORDERED: CALCIUM CHLORIDE INJ 1 GM in DEXTROSE 5% IN WATER 100ML INJ 100 ML IV ONE ×2 (13:00)
[2016-05-15 13:06] LABS: CALCIUM-PROTEIN CORRECTED 8.3 MG/DL (8.5-10.1)
--- NOTE | 2016-05-15 13:06 | EKG ---
Date Performed: 05/14/2016 Time Performed: 14:47:16 PTAGE: 51 years EKG: Sinus rhythm CANNOT ENTIRELY EXCLUDE A PRIOR SEPTAL INFARCT THE LATERAL ST ELEVATION IS NONSPECIFIC CLINICAL JOSE ROBERTO ELATION IS ADVISED ABNORMAL ECG NO PREVIOUS TRACING DOCTOR: Deena Herrera Interpretating Date/Time 05/15/2016 13:04:19
[2016-05-15 13:11] LABS: BLOOD GAS BASE EXCESS -12.7 mmol/L (-2-2); BLOOD GAS CARBOXYHEMOGLOBIN 1.2 % (0-4); BLOOD GAS HCO3 15 mmol/L (22-26); BLOOD GAS METHEMOGLOBIN 1.9 % (0-2); BLOOD GAS O2 HGB SATURATION 83 % (90-100); BLOOD GAS OXYGEN CONTENT 9.1 Vol % (12.0-20.0); BLOOD GAS PCO2 43 mmHg (38-42); BLOOD GAS PO2 52 mmHg (61-120); BLOOD GAS TOTAL HGB 7.8 G/DL (12.0-16.0); CRITICAL VALUE YES; OXYGEN DEVICE VENTILATOR; TEMP CORR TO 98.6
[2016-05-15 13:12] LABS: DRAW SITE ART LINE; FIO2 100 %; STAT NO; VENT SETTINGS PC/AC
[2016-05-15] MEDS ORDERED: ALBUMIN HUMAN 5% 12.5 GM/250 ML BOTTLE IV ONE (13:12)
[2016-05-15] MEDS ORDERED: SODIUM BICARBONATE 8.4% SOLN 50 MEQ/50 ML VIAL IV PUSH ONE (13:15)
--- NOTE | 2016-05-15 13:39 | EKG ---
Date Performed: 05/14/2016 Time Performed: 19:19:48 PTAGE: 51 years EKG: Sinus rhythm Since previous tracing, no significant change noted NORMAL ECG PREVIOUS TRACING : 05/14/2016 14.47 DOCTOR: Deena Herrera Interpretating Date/Time 05/15/2016 13:34:51
[2016-05-15] MEDS ORDERED: HEPARIN 25,000 UNITS-D5W 250 ML IV SCH (14:45)
[2016-05-15] MEDS ORDERED: PROTAMINE SULFATE 250 MG in NS 250 ML IV SCH (14:45)
[2016-05-15 15:43] LABS: BLOOD GAS BASE EXCESS -14.4 mmol/L (-2-2); BLOOD GAS CARBOXYHEMOGLOBIN 1.4 % (0-4); BLOOD GAS HCO3 13 mmol/L (22-26); BLOOD GAS METHEMOGLOBIN 1.9 % (0-2); BLOOD GAS O2 HGB SATURATION 76 % (90-100); BLOOD GAS OXYGEN CONTENT 10.4 Vol % (12.0-20.0); BLOOD GAS PCO2 42 mmHg (38-42); BLOOD GAS PO2 47 mmHg (61-120); BLOOD GAS TOTAL HGB 9.6 G/DL (12.0-16.0); CRITICAL VALUE YES; OXYGEN DEVICE VENTILATOR; TEMP CORR TO 98.6
[2016-05-15 15:44] LABS: DRAW SITE ART LINE; FIO2 100 %; STAT NO; VENT SETTINGS PC/AC
[2016-05-15] MEDS: SODIUM BICARBONATE 8.4% INJ 100 MEQ in SODIUM CHLOR 0.45% 1000 ML INJ 1,000 ML IV SCH ×5 (16:30→21:47)
[2016-05-15 17:09] LABS: BLOOD GAS CARBOXYHEMOGLOBIN 1.4 % (0-4); BLOOD GAS HCO3 14 mmol/L (22-26); BLOOD GAS METHEMOGLOBIN 1.8 % (0-2); BLOOD GAS O2 HGB SATURATION 78 % (90-100); BLOOD GAS PCO2 41 mmHg (38-42); BLOOD GAS PO2 47 mmHg (61-120); BLOOD GAS TOTAL HGB 9.1 G/DL (12.0-16.0); CRITICAL VALUE YES; OXYGEN DEVICE VENTILATOR; TEMP CORR TO 98.6
[2016-05-15 17:10] LABS: DRAW SITE ART LINE; FIO2 100 %; STAT NO; VENT SETTINGS PC/AC
[2016-05-15] MEDS: EPOPROSTENOL NEB SOLUTION 50 NG/KG/MIN 100 ML NEB SCH ×2 (17:22)
[2016-05-15 18:11] LABS: APTT (PATIENT) 42.3 SEC (24.3-30.1); INTERNATIONAL NORMALIZED RATIO 1.9 RATIO; PROTHROMBIN TIME - PATIENT 21.2 SEC (9.8-11.6)
[2016-05-15 18:16] LABS: BICARBONATE 17.1 MEQ/L (21.0-32.0); MAGNESIUM 2.3 MG/DL (1.5-2.5); POTASSIUM 3.4 MEQ/L (3.5-5.1)
[2016-05-15 18:34] LABS: BETA-HYDROXYBUTYRATE 0.62 MMOL/L (0.00-0.39); CALCIUM-PROTEIN CORRECTED 8.1 MG/DL (8.5-10.1)
[2016-05-15 18:50] LABS: CKMB 63.1 NG/ML (0.5-3.6)
[2016-05-15 19:10] LABS: BLOOD GAS BASE EXCESS -11.2 mmol/L (-2-2); BLOOD GAS CARBOXYHEMOGLOBIN 1.3 % (0-4); BLOOD GAS HCO3 15 mmol/L (22-26); BLOOD GAS O2 HGB SATURATION 83 % (90-100); BLOOD GAS OXYGEN CONTENT 9.9 Vol % (12.0-20.0); BLOOD GAS PCO2 42 mmHg (38-42); BLOOD GAS PO2 53 mmHg (61-120); BLOOD GAS TOTAL HGB 8.5 G/DL (12.0-16.0); TEMP CORR TO 98.6
[2016-05-15 19:12] LABS: CRITICAL VALUE YES; OXYGEN DEVICE VENTILATOR; VENT SETTINGS PC/AC
[2016-05-15 19:13] LABS: DRAW SITE ART LINE; FIO2 100 %; STAT NO
[2016-05-15] MEDS ORDERED: BISACODYL 10 MG SUPP RECTAL ONE (20:00)
[2016-05-15] MEDS: ARTIFICIAL TEARS OPTH SOLN 15 ML BTL EACH EYE SCH (20:11)
[2016-05-15] MEDS ORDERED: MAGNESIUM SULFATE 1 GM PREMIX 100 ML IV ONE (20:30)
[2016-05-15 20:56] LABS: BLOOD GAS BASE EXCESS -9.3 mmol/L (-2-2); BLOOD GAS CARBOXYHEMOGLOBIN 1.3 % (0-4); BLOOD GAS HCO3 17 mmol/L (22-26); BLOOD GAS METHEMOGLOBIN 1.9 % (0-2); BLOOD GAS O2 HGB SATURATION 82 % (90-100); BLOOD GAS OXYGEN CONTENT 9.3 Vol % (12.0-20.0); BLOOD GAS PCO2 43 mmHg (38-42); BLOOD GAS PO2 52 mmHg (61-120); BLOOD GAS TOTAL HGB 8.1 G/DL (12.0-16.0); TEMP CORR TO 98.6
[2016-05-15 20:57] LABS: CRITICAL VALUE YES; DRAW SITE ART LINE; FIO2 100 %; OXYGEN DEVICE VENTILATOR; STAT NO; VENT SETTINGS PC/AC
[2016-05-15] MEDS ORDERED: CALCIUM CHLORIDE INJ 1 GM in SODIUM CHLORIDE 0.9% INJ 100 ML IV ONE (21:00)
[2016-05-15] MEDS: ARTIFICIAL TEARS OPTH OINT 3.5 APPLIC/3.5 GM TUBO EACH EYE SCH (21:45)
[2016-05-15 22:58] LABS: BLOOD GAS BASE EXCESS -8.1 mmol/L (-2-2); BLOOD GAS CARBOXYHEMOGLOBIN 1.3 % (0-4); BLOOD GAS HCO3 18 mmol/L (22-26); BLOOD GAS METHEMOGLOBIN 2.2 % (0-2); BLOOD GAS O2 HGB SATURATION 79 % (90-100); BLOOD GAS OXYGEN CONTENT 9.5 Vol % (12.0-20.0); BLOOD GAS PCO2 42 mmHg (38-42); BLOOD GAS PO2 48 mmHg (61-120); BLOOD GAS TOTAL HGB 8.6 G/DL (12.0-16.0); CRITICAL VALUE YES; OXYGEN DEVICE VENTILATOR; TEMP CORR TO 98.6
[2016-05-15 22:59] LABS: DRAW SITE ART LINE; FIO2 100 %; STAT NO; VENT SETTINGS PC/AC
[2016-05-16] VITALS (11 sets, daily range): BP systolic 103–131; BP diastolic 41–50; PULSE 113–121; RESP 22; TEMP 96.5–97.2; O2SAT 79–99
[2016-05-16] MEDS: SODIUM BICARBONATE 8.4% INJ 100 MEQ in SODIUM CHLOR 0.45% 1000 ML INJ 1,000 ML IV SCH ×7 (00:05→12:52)
[2016-05-16 00:23] LABS: APTT (PATIENT) 36.4 SEC (24.3-30.1); PROTHROMBIN TIME - PATIENT 22.5 SEC (9.8-11.6)
[2016-05-16 00:27] LABS: HEMATOCRIT 25.9 % (39.0-51.0)
[2016-05-16 00:31] LABS: REVIEW FLAG FINAL
[2016-05-16 00:47] LABS: BICARBONATE 21.1 MEQ/L (21.0-32.0); MAGNESIUM 2.2 MG/DL (1.5-2.5); POTASSIUM 3.7 MEQ/L (3.5-5.1)
[2016-05-16 01:12] LABS: CALCIUM-PROTEIN CORRECTED 7.5 MG/DL (8.5-10.1); CKMB 60.9 NG/ML (0.5-3.6)
[2016-05-16 01:45] LABS: BLOOD GAS BASE EXCESS -7.5 mmol/L (-2-2); BLOOD GAS CARBOXYHEMOGLOBIN 1.2 % (0-4); BLOOD GAS HCO3 18 mmol/L (22-26); BLOOD GAS METHEMOGLOBIN 1.9 % (0-2); BLOOD GAS O2 HGB SATURATION 75 % (90-100); BLOOD GAS PCO2 40 mmHg (38-42); BLOOD GAS PO2 43 mmHg (61-120); BLOOD GAS TOTAL HGB 8.6 G/DL (12.0-16.0); TEMP CORR TO 98.6
[2016-05-16 01:46] LABS: CRITICAL VALUE YES; OXYGEN DEVICE VENTILATOR
[2016-05-16 01:47] LABS: DRAW SITE ART LINE; FIO2 100 %; STAT NO; VENT SETTINGS PC/AC
[2016-05-16 03:24] LABS: BLOOD GAS BASE EXCESS -7.1 mmol/L (-2-2); BLOOD GAS CARBOXYHEMOGLOBIN 1.4 % (0-4); BLOOD GAS HCO3 18 mmol/L (22-26); BLOOD GAS METHEMOGLOBIN 1.9 % (0-2); BLOOD GAS O2 HGB SATURATION 77 % (90-100); BLOOD GAS OXYGEN CONTENT 8.7 Vol % (12.0-20.0); BLOOD GAS PCO2 40 mmHg (38-42); BLOOD GAS PO2 46 mmHg (61-120); TEMP CORR TO 98.6
[2016-05-16 03:25] LABS: CRITICAL VALUE YES; DRAW SITE ART LINE; FIO2 100 %; OXYGEN DEVICE VENTILATOR; STAT NO; VENT SETTINGS PC/AC
[2016-05-16] MEDS: NOREPINEPHRINE 16 MG/D5W 250 ML IV SCH ×8 (03:25→17:27)
[2016-05-16] MEDS: SODIUM BICARBONATE 8.4% INJ 150 MEQ in WATER STERILE FOR INJ 850 ML IV SCH ×2 (03:26→08:25)
--- NOTE | 2016-05-16 03:26 | PD.PROCEDR ---
Procedure Note Procedure Date: 05/16/16 Procedure: Therapeutic Fiberoptic bronchoscopy Indication: Refractory hypoxemia with sats in low to mid 70s, decreased breath sounds on right with bedside ultrasound showing no evidence of pneumothorax. Details of procedure: Informed consent was obtained from after discussion of risks, benefits, alternatives including possible of acute worsening hypoxemia resulting in . Patient is sedated on Versed drip 5mg /hr, fentanyl drip and nimbex. He is positioned with left side dependent to facilitate oxygenation. The patient is on 100% FiO2 via endotracheal tube. I entered the endotracheal tube with a flexible bronchoscope. There was evidence of aspiration injury throughout the lungs but most prominent in RML and RLL. There were multiple thick dark brown/ black plugs that appeared similar to gastric contents mixed with thick mucoid secretions that were suctioned from RLL with the assistance of 10 mL saline wash x2. These were adherent to the bronchial subsegments. There was some swelling and friability of the RLL mucosa. Sats initially improved to 90s after suctioning of RLL. There were similar dark brown, thick adherent mucoid secretions suctioned from wall of left mainstem and from left lower lobe with the assistance of 10 mL saline wash x2. Entered the RLL again and there was some recollection of dark thick secretions which were again suctioned. The patient tolerated the procedure well without any apparent complications. Sats ranged from 78-90 during the procedure. Angelita Koroma MD May 16, 2016 03:26
[2016-05-16] MEDS: HYDROCORTISONE SOD SUCCINATE 100 MG VIAL IV PUSH SCH ×3 (03:27→18:38)
[2016-05-16] MEDS: EPOPROSTENOL NEB SOLUTION 50 NG/KG/MIN 100 ML NEB SCH ×6 (03:27→17:27)
[2016-05-16] MEDS: VASOPRESSIN IV SCH ×2 (03:32)
[2016-05-16] MEDS: DEXTROSE 5% IV SCH ×2 (03:32)
[2016-05-16] MEDS: WATER IV SCH ×2 (03:32)
[2016-05-16] MEDS: PHENYLEPHRINE INJ 160 MG in DEXTROSE 5% IN WATE 500 ML INJ 484 ML IV SCH ×4 (03:33→08:31)
[2016-05-16] MEDS ORDERED: SODIUM CHLOR 0.9% 250 ML INJ 250 ML IV ONE ×4 (04:00→06:30)
[2016-05-16] MEDS: PIPERACIL-TAZO 2.25 GM PREMIX 50 ML IV SCH ×2 (04:59→10:34)
[2016-05-16 05:15] LABS: BLOOD GAS BASE EXCESS -7.1 mmol/L (-2-2); BLOOD GAS CARBOXYHEMOGLOBIN 1.4 % (0-4); BLOOD GAS HCO3 18 mmol/L (22-26); BLOOD GAS METHEMOGLOBIN 1.9 % (0-2); BLOOD GAS O2 HGB SATURATION 79 % (90-100); BLOOD GAS OXYGEN CONTENT 9.3 Vol % (12.0-20.0); BLOOD GAS PCO2 37 mmHg (38-42); BLOOD GAS PO2 48 mmHg (61-120); BLOOD GAS TOTAL HGB 8.3 G/DL (12.0-16.0); TEMP CORR TO 98.6
[2016-05-16 05:16] LABS: CRITICAL VALUE YES; OXYGEN DEVICE VENTILATOR
[2016-05-16 05:18] LABS: DRAW SITE ART LINE; FIO2 100 %; STAT NO; VENT SETTINGS PC/AC
[2016-05-16] MEDS: LINEZOLID 600 MG PREMIX 300 ML IV SCH ×2 (05:31→17:13)
[2016-05-16] MEDS: ALBUMIN HUMAN 25% 25 GM/100 ML BAGP IV SCH ×3 (05:32→18:38)
[2016-05-16 05:38] LABS: HEMATOCRIT 22.9 % (39.0-51.0); MEAN CELL VOLUME 84.2 FL (80.0-100.0); MEAN CORPUSCULAR HEMOGLOBIN 29.8 PG (27.0-34.0); MEAN CORPUSCULAR HGB CONC 35.4 % (32.0-36.0); RED BLOOD COUNT 2.72 MIL/MM3 (4.50-5.90); RED CELL DISTRIBUTION WIDTH 14.4 % (11.6-17.2); WHITE BLOOD COUNT 1.3 TH/MM3 (4.0-11.0)
[2016-05-16 05:43] LABS: REVIEW FLAG FINAL
[2016-05-16 05:44] LABS: PLATELET COUNT 11 TH/MM3 (150-450)
[2016-05-16 05:51] LABS: APTT (PATIENT) 36.2 SEC (24.3-30.1); INTERNATIONAL NORMALIZED RATIO 2.1 RATIO; PROTHROMBIN TIME - PATIENT 23.4 SEC (9.8-11.6)
[2016-05-16] MEDS ORDERED: EPINEPHrine 8 MG/D5W 250 ML IV SCH ×2 (06:15)
[2016-05-16 06:30] LABS: BICARBONATE 19.3 MEQ/L (21.0-32.0)
[2016-05-16 06:32] LABS: POTASSIUM 3.7 MEQ/L (3.5-5.1)
[2016-05-16 06:49] LABS: CKMB 63.9 NG/ML (0.5-3.6)
[2016-05-16 06:51] LABS: CALCIUM-PROTEIN CORRECTED 6.5 MG/DL (8.5-10.1)
[2016-05-16 07:28] LABS: BLOOD GAS BASE EXCESS -8.1 mmol/L (-2-2); BLOOD GAS CARBOXYHEMOGLOBIN 1.2 % (0-4); BLOOD GAS HCO3 19 mmol/L (22-26); BLOOD GAS METHEMOGLOBIN 2.2 % (0-2); BLOOD GAS O2 HGB SATURATION 78 % (90-100); BLOOD GAS OXYGEN CONTENT 8.7 Vol % (12.0-20.0); BLOOD GAS PCO2 49 mmHg (38-42); BLOOD GAS PO2 53 mmHg (61-120); BLOOD GAS TOTAL HGB 7.9 G/DL (12.0-16.0); CRITICAL VALUE YES; OXYGEN DEVICE VENTILATOR; TEMP CORR TO 98.6
[2016-05-16 07:29] LABS: DRAW SITE ART LINE; FIO2 100 %; STAT NO
[2016-05-16] MEDS ORDERED: SODIUM CHLORIDE 0.9% IV ONE ×2 (07:45→09:00)
[2016-05-16] MEDS ORDERED: CALCIUM CHLORIDE IV ONE (07:45)
[2016-05-16] MEDS ORDERED: METHYLENE BLUE 100 MG/10 ML VIAL IV PUSH ONE (08:15)
[2016-05-16] MEDS: ARTIFICIAL TEARS OPTH SOLN 15 ML BTL EACH EYE SCH (08:21)
[2016-05-16] MEDS: ARTIFICIAL TEARS OPTH OINT 3.5 APPLIC/3.5 GM TUBO EACH EYE SCH (08:22)
[2016-05-16] MEDS: CISATRACURIUM INJ 100 MG in SODIUM CHLOR 0.9% 250 ML INJ 240 ML IV SCH ×2 (08:24→18:38)
[2016-05-16] MEDS: MICAFUNGIN INJ 100 MG in SODIUM CHLORIDE 0.9% INJ 100 ML IV SCH (08:24)
[2016-05-16] MEDS: PANTOPRAZOLE INJ 80 MG in SODIUM CHLORIDE 0.9% INJ 100 ML IV SCH (08:25)
[2016-05-16] MEDS: DOCUSATE SODIUM 100 MG CAP PO SCH (08:26)
[2016-05-16] MEDS: SODIUM CHLORIDE 0.9% FLUSH 5 ML FLUSH IV FLUSH SCH (08:26)
[2016-05-16] MEDS: THIAMINE INJ 100 MG in SODIUM CHLORIDE 0.9% INJ 100 ML IV SCH (08:26)
[2016-05-16] MEDS: SODIUM CHLORIDE 0.9% FLUSH 5 ML FLUSH IV FLUSH PRN (08:26)
[2016-05-16] MEDS: DEXTROSE 10% INJ 1,000 ML IV SCH (08:27)
[2016-05-16] MEDS: CHLORHEXIDINE 0.12% (ORAL KIT) 15 ML CUP MT SCH (08:28)
--- NOTE | 2016-05-16 08:38 | HHI.CCPN ---
Subjective Remarks/Hospital Course Hospital Course: History was obtained primarily from patient's as he is not able to provide significant past medical history. 51-year-old male with past mental history of hypertension, EtOH abuse presents to [facility] emergency department after he has been ill for 3 days. His states that he came home from work on 05/12/16 and was short of breath. He went to an outpatient clinic where he was diagnosed with an upper respiratory infection and prescribed steroids, amoxicillin, Cheratussin. He then developed vomiting with too many episodes of emesis to count. She states that she was told by the physician to hold steroids and cough medicine and just administer amoxicillin however he was unable to keep it down. She denies any hematemesis. He had previously denied abdominal pain but did report some abdominal discomfort during palpation in the ED. He had denied headache or neck pain to his . His last bowel movement was here in the ED. There is no melena. His states that she noticed he was breathing abnormally and had was becoming progressively more disoriented since yesterday evening. ED workup demonstrates that he is in DKA, acute kidney injury, and pancreatitis with lipase greater than 30,000. He has received 3 L normal saline bolus and has been started on an insulin drip. His presenting systolic blood pressure was in the 70s. Now his blood pressure is 96 /57 with map of 70. He has no prior history of pancreatitis Subjective: 05/15: patient remains in profound shock and multi-organ system failure. Though he was previously relatively healthy, he is now very critically ill. When I arrived at bedside, his pH was 6.9 despite ongoing active resuscitation with ivf , bicarb and maximal vasopressors. his last ABG was 6.9/38/55. For this, he received 2 gm CaCl, 4 amps bicarbonate, and a dose of methylene blue 2mg/kg. From a neurologic standpoint, he remains on the versed infusion and is paralyzed for elevated abdominal pressures. from a respiratory standpoint he is on PC/AC with PIP 31, MV 13 LPM, spo2 80s. CV, he is on 4 pressors and remains in profound vasoplegic distributive shock. His cardiac index is 3.5 and his scvo2 is 60 (sao2 80). He is still on mivf of 250cc/hr NS and bicarb 150cc/hr. profoundly acidotic and still in DKA. BG > 400 despite high dose insulin infusion. JASMIN is worsening and severely oliguric. His kidney are unable to regulate his acid load at this time. He is in DIC, clinically with oozing from iv sites, and with evidence of coagulopathy. he is thrombocytopenic, leukopenic , anemic. He also has coffee grounds emesis and likely has evidence of GI bleed , though this may be a combination of gastritis and DIC. His APACHEII score is 34. 1/2: persists in refractory shock and multiorgan system failure. DIC has worsened. plt 11, INR > 2 despite FFP infusion. 4 pressors persist with high doses. overnight became significantly hypoxic requiring emergent bronch for mucous plugging. He is no longer volume responsive, and I think he is now mobilizing his 22L of fluid that he required during his severe distributive shock. However, he remains in shock, and this will be difficult to do without him decompensating hemodynamically. continues to be updated at bedside. Objective Vital Signs Date Time Temp Pulse Resp B/P Pulse Ox O2 Delivery O2 Flow Rate FiO2 05/16/16 06:00 114 05/16/16 04:20 85 100 05/16/16 04:00 96.5 22 103/46 05/14/16 21:00 Room Air Intake and Output 05/15/16 05/15/16 05/15/16 07:59 15:59 23:59 Intake Total 5808 ml 7658 ml 4682 ml Output Total 1025 ml 125 ml 194 ml Balance 4783 ml 7533 ml 4488 ml Result Diagram: 05/16/16 0517 05/16/16 0517 Other Results Microbiology Date/Time Procedure Status Source Growth 05/14/16 19:45 Influenza Types A,B Antigen (CYNDEE) - Final Complete Nasal Aspirate NEGATIVE FOR FLU A AND B ANTIGEN.... Laboratory Tests Test 05/15/16 05/15/16 05/15/16 05/15/16 09:00 10:49 13:05 15:30 Blood Gas Puncture Site ART LINE ART LINE ART LINE ART LINE Blood Gas Patient Temperature 98.6 98.6 98.6 98.6 Blood Gas HCO3 13 mmol/L 11 mmol/L 15 mmol/L 13 mmol/L (22-26) (22-26) (22-26) (22-26) Blood Gas Base Excess -15.1 mmol/L -17.1 mmol/L -12.7 mmol/L -14.4 mmol/L (-2-2) (-2-2) (-2-2) (-2-2) Blood Gas Oxygen Saturation 88 % (90-100) 83 % (90-100) 83 % (90-100) 76 % (90- 100) Arterial Blood pH 7.10 7.08 7.15 7.12 (7.380-7.420) (7.380-7.420) (7.380-7.420) (7.380-7.420) Arterial Blood Partial 43 mmHg (38-42) 39 mmHg (38-42) 43 mmHg (38-42) 42 mmHg ( 38-42) Pressure CO2 Arterial Blood Partial 64 mmHg 58 mmHg 52 mmHg 47 mmHg Pressure O2 (61-120) (61-120) (61-120) (61-120) Arterial Blood Oxygen Content 11.8 Vol % 10.8 Vol % 9.1 Vol % 10.4 Vol % (12.0-20.0) (12.0-20.0) (12.0-20.0) (12.0-20.0) Arterial Blood 1.1 % (0-4) 1.2 % (0-4) 1.2 % (0-4) 1.4 % (0-4) Carboxyhemoglobin Arterial Blood Methemoglobin 1.3 % (0-2) 2.0 % (0-2) 1.9 % (0-2) 1.9 % (0-2) Blood Gas Hemoglobin 9.4 G/DL 9.2 G/DL 7.8 G/DL 9.6 G/DL (12.0-16.0) (12.0-16.0) (12.0-16.0) (12.0-16.0) Oxygen Delivery Device VENTILATOR VENTILATOR VENTILATOR VENTILATOR Blood Gas Ventilator Setting PC/AC PC/AC PC/AC PC/AC Blood Gas Inspired Oxygen 100 % 100 % 100 % 100 % Test 05/15/16 05/15/16 05/15/16 05/15/16 17:00 18:59 20:45 22:47 Blood Gas Puncture Site ART LINE ART LINE ART LINE ART LINE Blood Gas Patient Temperature 98.6 98.6 98.6 98.6 Blood Gas HCO3 14 mmol/L 15 mmol/L 17 mmol/L 18 mmol/L (22-26) (22-26) (22-26) (22-26) Blood Gas Base Excess -13.0 mmol/L -11.2 mmol/L -9.3 mmol/L -8.1 mmol/L (-2-2) (-2-2) (-2-2) (-2-2) Blood Gas Oxygen Saturation 78 % (90-100) 83 % (90-100) 82 % (90-100) 79 % (90- 100) Arterial Blood pH 7.16 7.19 7.22 7.25 (7.380-7.420) (7.380-7.420) (7.380-7.420) (7.380-7.420) Arterial Blood Partial 41 mmHg (38-42) 42 mmHg (38-42) 43 mmHg (38-42) 42 mmHg ( 38-42) Pressure CO2 Arterial Blood Partial 47 mmHg 53 mmHg 52 mmHg 48 mmHg Pressure O2 (61-120) (61-120) (61-120) (61-120) Arterial Blood Oxygen Content 10.0 Vol % 9.9 Vol % 9.3 Vol % 9.5 Vol % (12.0-20.0) (12.0-20.0) (12.0-20.0) (12.0-20.0) Arterial Blood 1.4 % (0-4) 1.3 % (0-4) 1.3 % (0-4) 1.3 % (0-4) Carboxyhemoglobin Arterial Blood Methemoglobin 1.8 % (0-2) 2.0 % (0-2) 1.9 % (0-2) 2.2 % (0-2) Blood Gas Hemoglobin 9.1 G/DL 8.5 G/DL 8.1 G/DL 8.6 G/DL (12.0-16.0) (12.0-16.0) (12.0-16.0) (12.0-16.0) Oxygen Delivery Device VENTILATOR VENTILATOR VENTILATOR VENTILATOR Blood Gas Ventilator Setting PC/AC PC/AC PC/AC PC/AC Blood Gas Inspired Oxygen 100 % 100 % 100 % 100 % Test 1/205/16/16 05/16/16 05/16/16 01:34 03:14 05:02 07:18 Blood Gas Puncture Site ART LINE ART LINE ART LINE ART LINE Blood Gas Patient Temperature 98.6 98.6 98.6 98.6 Blood Gas HCO3 18 mmol/L 18 mmol/L 18 mmol/L 19 mmol/L (22-26) (22-26) (22-26) (22-26) Blood Gas Base Excess -7.5 mmol/L -7.1 mmol/L -7.1 mmol/L -8.1 mmol/L (-2-2) (-2-2) (-2-2) (-2-2) Blood Gas Oxygen Saturation 75 % (90-100) 77 % (90-100) 79 % (90-100) 78 % (90- 100) Arterial Blood pH 7.27 7.29 7.31 7.20 (7.380-7.420) (7.380-7.420) (7.380-7.420) (7.380-7.420) Arterial Blood Partial 40 mmHg (38-42) 40 mmHg (38-42) 37 mmHg (38-42) 49 mmHg ( 38-42) Pressure CO2 Arterial Blood Partial 43 mmHg 46 mmHg 48 mmHg 53 mmHg Pressure O2 (61-120) (61-120) (61-120) (61-120) Arterial Blood Oxygen Content 9.0 Vol % 8.7 Vol % 9.3 Vol % 8.7 Vol % (12.0-20.0) (12.0-20.0) (12.0-20.0) (12.0-20.0) Arterial Blood 1.2 % (0-4) 1.4 % (0-4) 1.4 % (0-4) 1.2 % (0-4) Carboxyhemoglobin Arterial Blood Methemoglobin 1.9 % (0-2) 1.9 % (0-2) 1.9 % (0-2) 2.2 % (0-2) Blood Gas Hemoglobin 8.6 G/DL 8.0 G/DL 8.3 G/DL 7.9 G/DL (12.0-16.0) (12.0-16.0) (12.0-16.0) (12.0-16.0) Oxygen Delivery Device VENTILATOR VENTILATOR VENTILATOR VENTILATOR Blood Gas Ventilator Setting PC/AC PC/AC PC/AC Blood Gas Inspired Oxygen 100 % 100 % 100 % 100 % Objective Remarks GENERAL: Middle-aged male, lying in bed, intubated, sedated, paralyzed critically ill HEENT: Pupils 4 mm, equal, reactive, conjugate. Mucous membranes are moist. NECK: Trachea is midline. Neck veins flat. Left IJ triple-lumen catheter site is clean and dry, dressing intact. Right IJ dialysis catheter site is clean and dry, dressing intact. CHEST: Pressure control/assist-control 16/15/100%, rate of 22, minute ventilation 12. Equal chest rise. Bilateral coarse rales. CARDIOVASCULAR: Tachycardic rate, regular rhythm. S1, S2 without appreciable murmurs. ABDOMEN: Obese, soft, moderately distended. No guarding. Bladder pressures 14 MUSCULOSKELETAL: No peripheral edema. There is a right femoral arterial line with a moderate amount of oozing from around the catheter. The dressing is intact. Distal pulses are 1+. LEs are mottled. NEUROLOGICAL: RASS -5. Intubated and paralyzed. A/P Assessment and Plan Assessment: This is a 51-year-old male with history of hypertension, diabetes, alcohol abuse who now has presented with severe acute diabetic ketoacidosis as well as severe acute pancreatitis. He remains in life-threatening refractory distributive shock and multiorgan system failure secondary to his pancreatitis. Every organ system remains affected at this point. We are now starting to mobilize our high volume resuscitation, and I believe the only option left at this point is to attempt to pull intravascular volume. I am not sure he will tolerate this given his pressor requirements. His hypoxia is concerning, and we may have to pursue pronation to improve oxygenation, but at the present time I feel he is too unstable to attempt pronation. We will re-evaluate closely and may pursue this at some point today. Our goals remain aggressive. NEURO: Acute toxic metabolic encephalopathy Alcohol abuse --05/14 CT brain: negative acute --Thiamine 100mg iv daily --versed 5mg/hr iv for sedation and amnesia while on neuromuscular blockade. --continue Nimbex drip for abdominal compartment syndrome as well as for refractory hypoxia. --Monitor for evidence of alcohol withdrawal --RASS goal -5 while intubated. RESP: Acute hypoxic and hypercarbic respiratory failure- worsening despite maximal therapy ARDS Severe Aspiration pneumonitis --continue PC/AC. increased PEEP to 15, which he is tolerating better today. --Inhaled Flolan started 05/15 for improved V:Q matching. continue at 50ng/kg/min. --does not meet criteria for SBT today given instability --vent bundle --ABG q2h while in refractory acidosis. --bronch 05/15 with evidence of aspiration. CV: Refractory Distributive Shock History of hypertension Type II NSTEMI --Lactate stable, but persistently high at 17. continue q6h lactates to trend --will d/c MIVF. --Continue Epinephrine, vasopressin, norepinephrine, phenylephrine. our first goal today will be to decrease phenylephrine is possible. --goal MAP > 65mmHg. --Hold home medications including Norvasc (due to hypotension) and lisinopril ( due to hypotension and JASMIN). --trend troponins. likely secondary to demand ischemia --2D echocardiogram to eval for regional wall motion abnormalities. --will attempt a second round of methylene blue 2mg/kg iv. given renal dysfunction, have waited 24h to re-dose. My goal is to see if we can get control enough over the distributive shock component and refractory vasoplegia to allow us to start to manage his volume overload safely hemodynamically with CRRT. RENAL: Severe Acute Kidney Injury requiring Renal Replacement Therapy Acute Rhabdomyolysis Intravascular volume overload --renal consulted. --will start to pull fluid, 200cc/hr (not net even yet. ins are approximately 300/hr). will re-evaluate hourly and will plan to attempt net even at some point today. if he continues to tolerate, will start a negative fluid balance, but while still in shock, I am unsure if he will tolerate this at all. --q6h BMP for electrolyte monitoring --qday mg, phos. --continue martel with q1h uop. --trend CK q6h FEN/GI: Acute severe pancreatitis Intravascular hypervolemia acute protein calorie malnutrition-mild Upper GI Bleed Severe anion gap metabolic acidosis Diabetic Ketoacidosis- resolving. Lactic Acidosis --NPO --SL MIVF. --will d/c bicarb drip as it is adding too much intravascular volume. acidosis is starting to be corrected by CRRT. --trend H&H q6h --BMP, mg,phos q6h --Lactates q6h --GI consulted. too unstable for endoscopy. --protonix drip --will need TPN for malnutrition. will hold today given shock --trend daily LFTs, Lipase 05/14 CT abdomen and pelvispancreatitis. No pseudocyst --fluid management as above. HEME/ID: Septic Shock secondary to acute pancreatitis Severe Disseminated Intravascular Coagulation Thrombocytopenia Anemia secondary to acute blood loss Leukopenia --05/14 flu negative --05/14 blood cultures, urine culture, NGTD --Zosyn 2.25g IV q8h, renal dosing --Linezolid --Micafungin --Coags, fibrinogen q6h --goal INR < 1.5 with active bleeding --goal Hgb > 9 in the setting of refractory shock and evidence of inability to clear lactate despite max pressors. will liberalize this to >7 if we start to clear our lactate. --goal Plt > 50K. --goal fibrinogen > 150 --q6h H&H --qday CBC ENDOCRINE: Diabetic Ketoacidosis Presumed Adrenal Insufficiency --Insulin drip with q1h accuchecks --hydrocortisone 100mg iv q8h PROPHYLAXIS: GI Prophylaxis: --Protonix infusion DVT Prophylaxis: --SCDs --holding pharmacologic DVT prophylaxis in the setting of DIC and thrombocytopenia and GI bleed. ACCESS: -- 05/14 Left IJ triple lumen catheter -- 05/15 right femoral arterial line -- 05/15 right IJ dialysis catheter -- Martel Dispo: remain in the ICU. he is very critically ill. I continue to update the family at close intervals. Full code This patient remains critically ill with multiple organ systems which are a threat to life. I have spent in excess of 107 minutes discontinuously in the care and management of this patient. This time is exclusive of procedures, and includes, but is not limited to, evaluation of the patient, review of the medical record, discussions with family, consultants, nursing staff, or respiratory therapy, and documentation in the medical record. Elan Santos MD May 16, 2016 08:38
[2016-05-16] MEDS ORDERED: METHYLENE BLUE IV ONE (09:00)
[2016-05-16 09:17] LABS: BLOOD GAS BASE EXCESS -10.3 mmol/L (-2-2); BLOOD GAS HCO3 17 mmol/L (22-26); BLOOD GAS METHEMOGLOBIN 1.5 % (0-2); BLOOD GAS O2 HGB SATURATION 79 % (90-100); BLOOD GAS PCO2 54 mmHg (38-42); BLOOD GAS PO2 55 mmHg (61-120); TEMP CORR TO 98.6
[2016-05-16 09:18] LABS: CRITICAL VALUE YES; FIO2 100 %; OXYGEN DEVICE VENTILATOR
[2016-05-16 09:19] LABS: DRAW SITE ART LINE; STAT NO
[2016-05-16] MEDS: INSULIN REGULAR (IV INFUSION) 100 UNITS in SODIUM CHLORIDE 0.9% INJ 99 ML IV SCH (09:26)
[2016-05-16] MEDS: MANNITOL 12.5 GM/50 ML VIAL IV PUSH SCH ×2 (10:00→16:00)
[2016-05-16 11:06] LABS: BLOOD GAS BASE EXCESS -11.4 mmol/L (-2-2); BLOOD GAS CARBOXYHEMOGLOBIN 1.1 % (0-4); BLOOD GAS HCO3 16 mmol/L (22-26); BLOOD GAS METHEMOGLOBIN 2.5 % (0-2); BLOOD GAS O2 HGB SATURATION 86 % (90-100); BLOOD GAS OXYGEN CONTENT 8.5 Vol % (12.0-20.0); BLOOD GAS PCO2 52 mmHg (38-42); BLOOD GAS PO2 70 mmHg (61-120); BLOOD GAS TOTAL HGB 6.9 G/DL (12.0-16.0); TEMP CORR TO 98.6
[2016-05-16 11:07] LABS: CRITICAL VALUE YES; OXYGEN DEVICE VENTILATOR
[2016-05-16 11:08] LABS: DRAW SITE ART LINE; FIO2 100 %; STAT NO
--- NOTE | 2016-05-16 11:55 | HHI.NPPN ---
Subjective History of Present Illness 51 year old male with acute severe pancreatitis due to ETOH use with septic shock, ARDS, ARF, abnormal Liver enzymes, Respiratory failure now in DIC, Pancytopenia WBC 1.3, DKA, Lactic acidosis poorly responsive Interval History trying CRRT get is negative fluid balance Additional Remarks mottled lower extremities, cold cyanotic nail bed Objective Data Data 05/15/16 05/16/16 19:00 07:00 Intake Total 7658 ml 8429 ml Output Total 151 ml 191 ml Balance 7507 ml 8238 ml Intake IV Total 5958 ml 6629 ml Albumin 225 ml 300 ml Packed Cells 675 ml 300 ml FFP 300 ml 1200 ml Platelets 250 ml Cryoprecipitate 250 ml Output Urine Total 126 ml 41 ml Gastric Drainage Total 25 ml 150 ml # Bowel Movements 0 Vital Signs Date Time Temp Pulse Resp B/P Pulse Ox O2 Delivery O2 Flow Rate FiO2 05/16/16 09:39 115 131/45 05/16/16 08:45 91 100 05/16/16 06:00 114 05/16/16 04:20 85 100 05/16/16 04:00 121 05/16/16 04:00 100 05/16/16 04:00 96.5 117 22 103/46 85 05/16/16 04:00 117 103/46 05/16/16 02:00 121 05/16/16 01:17 97 40 05/16/16 00:00 121 105/50 05/16/16 00:00 97.2 121 22 105/50 79 05/16/16 00:00 100 05/16/16 00:00 121 05/15/16 22:00 123 05/15/16 20:05 88 100 05/15/16 20:00 97.7 124 22 108/47 89 05/15/16 20:00 100 05/15/16 20:00 124 108/47 05/15/16 20:00 124 05/15/16 18:34 124 115/46 05/15/16 18:00 123 05/15/16 16:03 90 100 05/15/16 16:00 122 05/15/16 16:00 100 05/15/16 16:00 97.7 122 22 102/46 90 05/15/16 14:00 124 05/15/16 12:02 85 100 05/15/16 12:00 100 05/15/16 12:00 96.6 127 22 106/46 88 05/15/16 12:00 127 -: 05/16/16 0517 05/16/16 0517 Physical Exam General Appearance: Pale Neck Neck Exam: Neck Supple Pulmonary Resp Exam: Rhonchi, Diminished Breath Sounds Cardiology CV Exam: Tachycardia Gastrointestinal/Abdomen GI Exam: Distended, Bowel Sounds Absent Extremeties Extremities Exam: Moderate Edema, Pitting Edema Extremeties Remarks mottling of skin Neurologic Neuro Exam: Comatose Assessment/Plan Problem List: (1) ARF (acute renal failure) Plan: CRRT, progress noted QB 250 Using Mannitol continue to go up in UF as tolerated until in negative fluid balance Lactic acidosis persists his prognosis is poor due to severity of Pancreatitis with associated complications (2) Acidosis, metabolic Plan: severe start CRRT (3) DKA (diabetic ketoacidoses) Plan: on Insulin drip (4) Pancreatitis Plan: lipase> 30 k, [id number] (5) GI (gastrointestinal bleed) Plan: PRBC given GI following (6) Elevated LFTs (7) DIC (disseminated intravascular coagulation) Plan: platelets now 11 k, WBC 1.3, Hb low Problem Qualifiers (1) ARF (acute renal failure): Qualified Code: N17.9 - Acute renal failure, unspecified acute renal failure type (2) DKA (diabetic ketoacidoses): Qualified Code: E13.11 - Diabetic ketoacidosis with coma associated with other specified diabetes mellitus (3) Pancreatitis: Qualified Code: K85.90 - Acute pancreatitis, unspecified complication status, unspecified pancreatitis type (4) GI (gastrointestinal bleed): Radha Easton MD May 16, 2016 11:55
[2016-05-16 12:23] LABS: APTT (PATIENT) 38.1 SEC (24.3-30.1); INTERNATIONAL NORMALIZED RATIO 1.8 RATIO; PROTHROMBIN TIME - PATIENT 20.7 SEC (9.8-11.6)
[2016-05-16 13:05] LABS: BLOOD GAS BASE EXCESS -12.5 mmol/L (-2-2); BLOOD GAS CARBOXYHEMOGLOBIN 1.1 % (0-4); BLOOD GAS HCO3 15 mmol/L (22-26); BLOOD GAS METHEMOGLOBIN 2.6 % (0-2); BLOOD GAS O2 HGB SATURATION 82 % (90-100); BLOOD GAS OXYGEN CONTENT 8.1 Vol % (12.0-20.0); BLOOD GAS PCO2 48 mmHg (38-42); BLOOD GAS PO2 63 mmHg (61-120); BLOOD GAS TOTAL HGB 6.9 G/DL (12.0-16.0); CRITICAL VALUE YES; OXYGEN DEVICE VENTILATOR; TEMP CORR TO 98.6
[2016-05-16 13:06] LABS: DRAW SITE ART LINE; FIO2 100 %; STAT NO
[2016-05-16 13:20] LABS: CKMB 67.9 NG/ML (0.5-3.6)
[2016-05-16] MEDS ORDERED: SODIUM BICARBONATE 8.4% INJ 50 MEQ/50 ML SYR ONE ×2 (13:25→15:26)
[2016-05-16] MEDS ORDERED: CALCIUM CHLORIDE 10% SOLN 1 GRAM/10 ML SYR IV PUSH ONE (14:00)
[2016-05-16 14:06] LABS: BLOOD GAS BASE EXCESS -11.5 mmol/L (-2-2); BLOOD GAS CARBOXYHEMOGLOBIN 1.1 % (0-4); BLOOD GAS HCO3 16 mmol/L (22-26); BLOOD GAS METHEMOGLOBIN 2.6 % (0-2); BLOOD GAS O2 HGB SATURATION 83 % (90-100); BLOOD GAS OXYGEN CONTENT 8.5 Vol % (12.0-20.0); BLOOD GAS PCO2 53 mmHg (38-42); BLOOD GAS PO2 63 mmHg (61-120); BLOOD GAS TOTAL HGB 7.2 G/DL (12.0-16.0); TEMP CORR TO 98.6
[2016-05-16 14:07] LABS: CRITICAL VALUE YES; OXYGEN DEVICE VENTILATOR
[2016-05-16 14:08] LABS: DRAW SITE ART LINE; FIO2 100 %; STAT YES
--- NOTE | 2016-05-16 15:15 | EC ---
Study Study Date:05/16/2016 STUDY CONCLUSIONS SUMMARY - Left ventricle: The cavity size was normal. Wall thickness was normal. Systolic function was hyperdynamic. The estimated ejection fraction was in the range of 70% to 75%. Wall motion was normal; there were no regional wall motion abnormalities. - Pericardium, extracardiac: There was a left pleural effusion. If LV function is below 40, please consider prescribing an ACEI or ARB or document rationale for non-use. PROCEDURE DATA STUDY STATUS: Elective. Procedure: Transthoracic echocardiography. Image quality was good. Scanning was performed from the parasternal, apical, and subcostal acoustic windows. Study completion: The patient tolerated the procedure well. Transthoracic echocardiography. M-mode, complete 2D, complete spectral Doppler, and color Doppler. Patient status: Inpatient. CARDIAC ANATOMY LEFT VENTRICLE: The cavity size was normal. Wall thickness was normal. Systolic function was hyperdynamic. The estimated ejection fraction was in the range of 70% to 75%. Wall motion was normal; there were no regional wall motion abnormalities. AORTIC VALVE: Trileaflet; normal thickness leaflets. Doppler: Transvalvular velocity was within the normal range. There was no stenosis. No regurgitation. AORTA: Aortic root: The aortic root was poorly visualized and mildly dilated. MITRAL VALVE: Structurally normal valve. Doppler: Transvalvular velocity was within the normal range. There was no evidence for stenosis. Trace to mild regurgitation. LEFT ATRIUM: The atrium was normal in size. RIGHT VENTRICLE: The cavity size was normal. Wall thickness was normal. PULMONIC VALVE: Doppler: Transvalvular velocity was within the normal range. There was no evidence for stenosis. No regurgitation. TRICUSPID VALVE: Structurally normal valve. Doppler: Transvalvular velocity was within the normal range. Trace to mild regurgitation. PULMONARY ARTERY: The main pulmonary artery was normal-sized. Systolic pressure was within the normal range. RIGHT ATRIUM: The atrium was normal in size. PERICARDIUM: There was no pericardial effusion. SYSTEMIC VEINS: Inferior vena cava: The vessel was normal in size. Pleura: There was a left pleural effusion. BASIC MEASUREMENTS ADULT NORMAL Left ventricle LV internal dimension, ED, chordal level, *41 mm 43-52 PLAX LV internal dimension, ES, chordal level, 25.6 mm 23-38 PLAX Fractional shortening, chordal level, PLAX 38 % >29 LV posterior wall thickness, ED 8.97 mm IVS/LVPW ratio, ED *1.63 <1.3 Ventricular septum Septal thickness, ED 14.6 mm Aortic valve Leaflet separation 23 mm 15-26 Right ventricle RV internal dimension, ED, PLAX 32.7 mm 19-38 BASIC MEASUREMENTS ADULT NORMAL Aortic valve Leaflet separation 23 mm 15-26 Aorta Root diameter, ED *41 mm 20-37 Left atrium Anterior-posterior dimension, ES 37 mm 19-40 LA/aortic root ratio 0.9 LEGEND: Mean values are shown as u=mean value. Asterisk (*) jacinto values outside specified normal range. Prepared and signed by Florentino Abebe [id number]
[2016-05-16 15:20] LABS: BLOOD GAS BASE EXCESS -13.9 mmol/L (-2-2); BLOOD GAS HCO3 14 mmol/L (22-26); BLOOD GAS METHEMOGLOBIN 2.4 % (0-2); BLOOD GAS O2 HGB SATURATION 86 % (90-100); BLOOD GAS OXYGEN CONTENT 9.4 Vol % (12.0-20.0); BLOOD GAS PCO2 49 mmHg (38-42); BLOOD GAS PO2 70 mmHg (61-120); BLOOD GAS TOTAL HGB 7.7 G/DL (12.0-16.0); TEMP CORR TO 98.6
[2016-05-16 15:21] LABS: OXYGEN DEVICE VENTILATOR
[2016-05-16 15:22] LABS: DRAW SITE ART LINE; FIO2 100 %; STAT NO
[2016-05-16] MEDS ORDERED: SODIUM BICARBONATE 8.4% INJ 50 ML ONE ×2 (15:26→16:39)
[2016-05-16 16:33] LABS: BLOOD GAS BASE EXCESS -11.3 mmol/L (-2-2); BLOOD GAS CARBOXYHEMOGLOBIN 1.3 % (0-4); BLOOD GAS HCO3 15 mmol/L (22-26); BLOOD GAS METHEMOGLOBIN 2.4 % (0-2); BLOOD GAS O2 HGB SATURATION 79 % (90-100); BLOOD GAS OXYGEN CONTENT 6.9 Vol % (12.0-20.0); BLOOD GAS PCO2 40 mmHg (38-42); BLOOD GAS PO2 53 mmHg (61-120); BLOOD GAS TOTAL HGB 6.1 G/DL (12.0-16.0); TEMP CORR TO 98.6
[2016-05-16 16:34] LABS: CRITICAL VALUE YES; OXYGEN DEVICE VENTILATOR
[2016-05-16 16:35] LABS: DRAW SITE ART LINE; FIO2 100 %; STAT NO
[2016-05-16] MEDS ORDERED: SODIUM BICARBONATE IV SCH (18:00)
[2016-05-16] MEDS ORDERED: FLEXIBLE CONTAINER IV SCH (18:00)
[2016-05-16 18:54] LABS: REVIEW FLAG FINAL
[2016-05-16 19:14] LABS: APTT (PATIENT) 43.9 SEC (24.3-30.1); INTERNATIONAL NORMALIZED RATIO 2.1 RATIO; PROTHROMBIN TIME - PATIENT 23.7 SEC (9.8-11.6)
[2016-05-25 09:56] LABS: CRITICAL VALUE YES
--- NOTE | 2016-05-31 22:49 | HHI.DS ---
Summary Note Date of : May 16, 2016 Time Of : 1900 Admission Date May 14, 2016 at 18:26 Admitting Diagnosis DKA, pancreatitis Diagnosis at Time of : Brief History History was obtained primarily from patient's as he is not able to provide significant past medical history. 51-year-old male with past mental history of hypertension, EtOH abuse presents to [facility] emergency department after he has been ill for 3 days. His states that he came home from work on 05/12/16 and was short of breath. He went to an outpatient clinic where he was diagnosed with an upper respiratory infection and prescribed steroids, amoxicillin, Cheratussin. He then developed vomiting with too many episodes of emesis to count. She states that she was told by the physician to hold steroids and cough medicine and just administer amoxicillin however he was unable to keep it down. She denies any hematemesis. He had previously denied abdominal pain but did report some abdominal discomfort during palpation in the ED. He had denied headache or neck pain to his . His last bowel movement was here in the ED. There is no melena. His states that she noticed he was breathing abnormally and had was becoming progressively more disoriented since yesterday evening. ED workup demonstrates that he is in DKA, acute kidney injury, and pancreatitis with lipase greater than 30,000. He has received 3 L normal saline bolus and has been started on an insulin drip. His presenting systolic blood pressure was in the 70s. Now his blood pressure is 96 /57 with map of 70. He has no prior history of pancreatitis Hospital Course Hospital Course: History was obtained primarily from patient's as he is not able to provide significant past medical history. 51-year-old male with past mental history of hypertension, EtOH abuse presents to [facility] emergency department after he has been ill for 3 days. His states that he came home from work on 05/12/16 and was short of breath. He went to an outpatient clinic where he was diagnosed with an upper respiratory infection and prescribed steroids, amoxicillin, Cheratussin. He then developed vomiting with too many episodes of emesis to count. She states that she was told by the physician to hold steroids and cough medicine and just administer amoxicillin however he was unable to keep it down. She denies any hematemesis. He had previously denied abdominal pain but did report some abdominal discomfort during palpation in the ED. He had denied headache or neck pain to his . His last bowel movement was here in the ED. There is no melena. His states that she noticed he was breathing abnormally and had was becoming progressively more disoriented since yesterday evening. ED workup demonstrates that he is in DKA, acute kidney injury, and pancreatitis with lipase greater than 30,000. He has received 3 L normal saline bolus and has been started on an insulin drip. His presenting systolic blood pressure was in the 70s. Now his blood pressure is 96 /57 with map of 70. He has no prior history of pancreatitis Subjective: 05/15: patient remains in profound shock and multi-organ system failure. Though he was previously relatively healthy, he is now very critically ill. When I arrived at bedside, his pH was 6.9 despite ongoing active resuscitation with ivf , bicarb and maximal vasopressors. his last ABG was 6.9/38/55. For this, he received 2 gm CaCl, 4 amps bicarbonate, and a dose of methylene blue 2mg/kg. From a neurologic standpoint, he remains on the versed infusion and is paralyzed for elevated abdominal pressures. from a respiratory standpoint he is on PC/AC with PIP 31, MV 13 LPM, spo2 80s. CV, he is on 4 pressors and remains in profound vasoplegic distributive shock. His cardiac index is 3.5 and his scvo2 is 60 (sao2 80). He is still on mivf of 250cc/hr NS and bicarb 150cc/hr. profoundly acidotic and still in DKA. BG > 400 despite high dose insulin infusion. JASMIN is worsening and severely oliguric. His kidney are unable to regulate his acid load at this time. He is in DIC, clinically with oozing from iv sites, and with evidence of coagulopathy. he is thrombocytopenic, leukopenic , anemic. He also has coffee grounds emesis and likely has evidence of GI bleed , though this may be a combination of gastritis and DIC. His APACHEII score is 34. /: persists in refractory shock and multiorgan system failure. DIC has worsened. plt 11, INR > 2 despite FFP infusion. 4 pressors persist with high doses. overnight became significantly hypoxic requiring emergent bronch for mucous plugging. He is no longer volume responsive, and I think he is now mobilizing his 22L of fluid that he required during his severe distributive shock. However, he remains in shock, and this will be difficult to do without him decompensating hemodynamically. continues to be updated at bedside. Despite all of our aggressive measures, the patient continued refractory shock. He continued to decline clinically despite multiple vasopressors and maximal support. I had a discussion with his and we together decided the patient would be DNR. We continued our aggressive measures until the patient succumbed to cardiac arrest secondary to his multisystem organ failure from acute pancreatitis. He on 05/16 at 19:00 Elan Santos MD May 31, 2016 22:49
== END 2016-05-16 17:00 | disposition expired | DRG 637 ==
LOC: NEPC 14:06 → NEDA 18:26 → HIMN 21:10
PROVIDERS: ADMIT Emergency Medicine; ATTEND Emergency Medicine
PROC: 05HN33Z Insertion of Infusion Device into Left Internal Jugular Vein, Percutaneous Approach (ICD-10-PCS; principal; 2016-05-15)
PROC: 5A12012 Performance of Cardiac Output, Single, Manual (ICD-10-PCS; 2016-05-15)
PROC: 5A1945Z Respiratory Ventilation, 24-96 Consecutive Hours (ICD-10-PCS; 2016-05-15)
PROC: B544ZZA Ultrasonography of Left Jugular Veins, Guidance (ICD-10-PCS; 2016-05-15)
PROC: 0BH17EZ Insertion of Endotracheal Airway into Trachea, Via Natural or Artificial Opening (ICD-10-PCS; 2016-05-15)
PROC: 04HK33Z Insertion of Infusion Device into Right Femoral Artery, Percutaneous Approach (ICD-10-PCS; 2016-05-15)
PROC: 05HM33Z Insertion of Infusion Device into Right Internal Jugular Vein, Percutaneous Approach (ICD-10-PCS; 2016-05-15)
PROC: B543ZZA Ultrasonography of Right Jugular Veins, Guidance (ICD-10-PCS; 2016-05-15)
PROC: 0BJ08ZZ Inspection of Tracheobronchial Tree, Via Natural or Artificial Opening Endoscopic (ICD-10-PCS; 2016-05-16)
DX: E13.10 Other specified diabetes mellitus with ketoacidosis without coma (principal); K85.90 Acute pancreatitis without necrosis or infection, unspecified; D65 Disseminated intravascular coagulation [defibrination syndrome]; I21.4 Non-ST elevation (NSTEMI) myocardial infarction; I46.9 Cardiac arrest, cause unspecified; A41.9 Sepsis, unspecified organism; J96.01 Acute respiratory failure with hypoxia; J96.02 Acute respiratory failure with hypercapnia; J69.0 Pneumonitis due to inhalation of food and vomit; G92 Toxic encephalopathy; R65.21 Severe sepsis with septic shock; N17.9 Acute kidney failure, unspecified; M62.82 Rhabdomyolysis; D61.818 Other pancytopenia; D62 Acute posthemorrhagic anemia; E27.40 Unspecified adrenocortical insufficiency; E46 Unspecified protein-calorie malnutrition; E87.1 Hypo-osmolality and hyponatremia; K92.2 Gastrointestinal hemorrhage, unspecified; R18.8 Other ascites; M79.A3 Nontraumatic compartment syndrome of abdomen; E83.39 Other disorders of phosphorus metabolism; I10 Essential (primary) hypertension; Z87.891 Personal history of nicotine dependence; F10.21 Alcohol dependence, in remission; E78.00 Pure hypercholesterolemia, unspecified; E86.1 Hypovolemia; E87.70 Fluid overload, unspecified; K29.70 Gastritis, unspecified, without bleeding; T17.990A Other foreign object in respiratory tract, part unspecified in causing asphyxiation, initial encounter; Z66 Do not resuscitate
CPT/HCPCS: 31500; 31624; 36430; 36556; 36600; 70450; 71010; 74176; 76937; 80048; 80053; 80076; 81001; 82010; 82550; 82552; 82805; 82947; 82948; 83605; 83690; 83735; 84100; 84155; 84443; 84484; 85007; 85014; 85018; 85027; 85384; 85610; 85730; 86850; 86900; 86901; 86920; 86927; 86965; 87040; 87641; 87804; 93005; 93306; 94002; 94003; 94799; 96365; 96375; C9113; J0171; J0461; J0610; J1325; J1720; J1817; J2020; J2150; J2248; J2250; J2370; J2543; J3411; J3475; J7030; J7050; J7060; J7120; P9016; P9017; P9035; P9045; P9047